=== PATIENT | male | born 1955 | race Caucasian/White ===

== ENCOUNTER → 2017-10-13 10:28 | Outpatient (CLI) | payer MEDICARE ==
[2014-04-28 13:49] VITALS: BMI 20.5
[~2017-10-13 10:28] MED LIST: ALEVE220 MG PO; BAYER ASPIRIN325 MG PO; BAYER CHEWABLE81 MG PO; EFFIENT10 MG PO; FLOMAX0.4 MG PO; HYDROCODONE-APA1 TAB PO; PRAVACHOL40 MG PO; TYLENOL W/CODEI1 TAB PO
== END | disposition home or self-care (01) ==
LOC: D.MRI 10-12 14:30
DX: M54.16 Radiculopathy, lumbar region (principal)

== ENCOUNTER 2017-11-24 08:19 | Outpatient (CLI) | payer MEDICARE ==
[~2017-11-24] VITALS: Ht 292.1 cm; Wt 55.0 kg
--- NOTE | ~2017-11-24 | OP ---
PATIENT NAME: ISAI FONSECA MEDICAL RECORD: [id number] :51 LOCATION:D.CAT ADMISSION DATE: SURGEON: RAVEN JONES MD DATE OF OPERATION: 11/24/2017 PROCEDURE: 1. Aortofemoral runoff. 2. Abdominal aortography. INDICATION: Claudication and peripheral vascular disease. PROCEDURE IN DETAIL: After informed consent was obtained and after a detailed description of risks, benefits as well as alternative therapies, the patient elected to proceed with angiogram. The right femoral area had a preexisting sheath from cardiac intervention. All catheters exchanged through this sheath. FINDINGS: The abdominal aortography was performed. The catheter was pulled down for aortofemoral runoff. Abdominal aortography reveals no significant abdominal aortic disease. No dissection or aneurysm formation. No renal artery stenosis. RIGHT LEG: A. 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 They were placed with an aortofemoral graft. This is widely patent. B. Femoral system: The common and deep femoral are widely patent. Superficial femoral has an 80% stenosis times 2. C. Popliteal and infrapopliteal vessels are widely patent with good 3-vessel runoff to the foot. LEFT LEG: A. Iliac: The iliacs are totally occluded and replaced with an aortofemoral graft. The graft is widely patent; however, there is 80+ percent stenosis just after the graft in the proximal SFA. The remainder of the SFA is devoid of significant disease. B. Popliteal vessels: The popliteal has an 80% and 90% stenosis in the mid vessel, otherwise the popliteal has no significant disease. C. Infrapopliteal vessels are patent. There is 3-vessel runoff to the foot. OVERALL IMPRESSION: Wide patency of the aortofemoral graft with disease after this graft in both SFAs bilaterally. It is amenable to transcatheter revascularization. TRANSINT:[id number] Voice Confirmation ID: [id number] DOCUMENT ID: [id number] RAVEN JONES MD at 1325 CC: [id number] DICTATION DATE: 11/24/17 1501 [employer]INAL [employer]ICE FACULTY: 11/24/17 1538 DEP CLI 11/24/17 [place] [address]
--- NOTE | ~2017-11-24 | OP ---
PATIENT NAME: ISAI FONSECA MEDICAL RECORD: [id number] :51 LOCATION:D.CAT ADMISSION DATE: SURGEON: RAVEN JONES MD DATE OF OPERATION: 11/24/2017 PROCEDURES: 1. PTCA stent LAD. 2. Left heart catheterization. 3. Selective coronary angiography. 4. Left ventriculogram. INDICATION: Angina and coronary artery disease. PROCEDURE IN DETAIL: After informed consent was obtained and after a detailed description of the risks, benefits as well as alternative therapies, the patient elected to proceed with angiogram and angioplasty. The right femoral area was prepped and draped in normal sterile fashion. The right femoral artery was cannulated via modified Seldinger technique with placement of 6-Frisian sheath. All catheters exchanged through this sheath. FINDINGS: The left ventriculogram was performed in standard 30-degree KAN view reveals preserved cardiac wall motion, ejection fraction 50%. SELECTIVE CORONARY ANGIOGRAPHY: 1. Left main is with no significant angiographic disease. 2. Left anterior descending has previously placed stent with 70% to 80% in-stent restenosis in the mid vessel. 3. Left circumflex has moderate irregularities, but no flow-limiting stenosis. 4. The right coronary artery has previously placed stent. This is widely patent with no significant stenosis. PTCA STENT OF THE LAD: The stent used was a 3.5 x 26 mm Waller taken to 21 atmospheres. Result was 0% residual stenosis. OVERALL IMPRESSION: Successful percutaneous transluminal coronary angioplasty stent of the left anterior descending going from 80% initial in-stent restenosis to 0% residual stenosis. TRANSINT:[id number] Voice Confirmation ID: [id number] DOCUMENT ID: [id number] RAVEN JONES MD at 1325 CC: [id number] DICTATION DATE: 11/24/17 1501 CHRISTIAN COUNSELOR: 11/24/17 1538 [facility] CLI 11/24/17 [place] [id number]
--- NOTE | ~2017-11-24 | HEMODYNAMI ---
PATIENT:ISAI FONSECA MEDICAL RECORD: [id number] : 51 LOCATION:D.CAT ADMISSION DATE: 11/24/17 Generatedon:11/24/201715:03 Patient name: ISAI FONSECA Patient #: [id number] SSN: : Date of study: 11/24/2017 Page: Of Hemodynamic Procedure Report Patient Data Patient Demographics Procedure consent was obtained First Name: ISAI Gender: Male Last Name: RAYMUNDO : 1955 Middle Initial: KYA Age: 62 year(s) Patient #: [id number] Race: Unknown Additional ID: [id number] Contact details [address]: [address] [place] [address] State: [place] City: [place] Zip code: [address] Past Medical History Allergies Allergen Reaction Date Comments Reported Other allergy 11/24/2017 PCN, TRAMADOL Admission Admission Data Admission Date: 11/24/2017 Admission Time: 8:19 Lab Results Lab Result Date: 11/24/2017 Lab Result Time: 0:00 Biochemistry Name Units Result Min Max BUN mg/dl 13 --(--*-)-- 7 18 Creatinine mg/dl 1.2 --(---*)-- 0.6 1.3 CBC Name Units Result Min Max Hemoglobin g/dl 15.6 --(--*-)-- 13.5 17.5 Procedure Procedure Types Cath Procedure Diagnostic Procedure LHC [facility] w/Coronaries PCI Procedure Coronary Stent Coronary Stent Initial Peripheral Cath Diagnostic Procedure Cath Peripheral Avmpz-Fqdewde-Ayi-Off Procedure Description Procedure Date Procedure Date: 11/24/2017 Procedure Start Time: 14:40 Procedure End Time: 15:03 Procedure Staff Name Function Vanessa Perea RT Scrub Maxwell Moraes RN Nurse Josh Peterson MD Performing Physician Flavia Cardenas RT Monitor Procedure Data Cath Procedure Fluoroscopy Diagnostic fluoroscopy Total fluoroscopy Time: 2.9 time: 2.9 min min Diagnostic fluoroscopy Total fluoroscopy dose: 314 dose: 314 mGy mGy Contrast Material Contrast Material Type Amount (ml) Isovue 300 106 Entry Location Entry Primary Successful Side Size Upsize Upsize Entry Closure Succes sful Closure Location (Fr) 1 (Fr) 2 (Fr) Remarks Device Remarks Femoral Right 5 Fr 6 Fr Exoseal artery Short Estimated blood loss: 10 ml Diagnostic catheters Device Type Used For End Catheter Placement MULTIPACK Pigtail 5 Fr Procedure catheter MULTIPACK JL 4.0 5Fr Procedure catheter MULTIPACK 3DRC 5Fr Procedure catheter Procedure Complications No complications Procedure Medications Medication Administration Route Dosage Oxygen NC 2 l/min Lidocaine 2% added to field 20 Heparin Flush Bag added to field 2 bags (1000units/500ml NS) 0.9% NaCl I.V. 100 ml/hr Versed I.V. 1 mg Fentanyl I.V. 50 mcg Versed I.V. 1 mg Fentanyl I.V. 50 mcg Versed I.V. 1 mg Fentanyl I.V. 50 mcg Heparin Bolus I.V. 4000 units Integrilin (Bolus I.V. 5 ml 2mg/ml) Effient P.O. 50 mg Hemodynamics Rest HGB: 15.6 (g/dl) Heart Rate: 65 (bpm) Snapshots Pre Cath Intra NCS Post Cath Vital Signs Time Heart Resp SPO2 NIBP Rhythm Pain Sedation Rate (ipm) (%) (mmHg) Status Level (bpm) 14:32:37 75 17 99 99/65(81) NSR 0 (11) 10(A) , No pain 14:36:36 63 16 99 112/66(81) NSR 0 (11) 10(A) , No pain 14:40:44 64 17 98 96/60(76) NSR 0 (11) 10(A) , No pain 14:44:44 72 13 96 101/65(70) NSR 0 (11) 9(A) , No pain 14:48:48 70 12 97 92/59(67) NSR 0 (11) 9(A) , No pain 14:52:47 76 11 96 97/64(79) NSR 0 (11) 9(A) , No pain 14:56:51 75 15 98 97/57(80) NSR 0 (11) 10(A) , No pain 15:00:55 69 9 98 88/59(71) NSR 0 (11) 10(A) , No pain Medications Time Medication Route Dose Verified Delivered Reason Notes Effectiveness by by 14:31:03 Oxygen NC 2 Josh Melaraie used for l/min Kristen Moraes RN procedure 14:31:10 Lidocaine 2% added 20ml Joshgabe Moreno for local to vial Kristen Peterson MD anesthetic field 14:31:16 Heparin Flush added 2 Josh Josh used for Bag to bags Kristen Peterson MD procedure (1000units/500ml field NS) 14:31:23 0.9% NaCl I.V. 100 Josh Melaraie Per physician ml/hr Kristen Moraes RN 14:37:22 Versed I.V. 1 mg Josh Arreola for sedation Kristen Moraes RN 14:37:28 Fentanyl I.V. 50 Josh Melaraie for sedation mcg Kristen Moraes RN 14:39:48 Versed I.V. 1 mg Josh Melaraie for sedation Kristen Moraes RN 14:39:52 Fentanyl I.V. 50 Josh Melaraie for sedation mcg Kristen Moraes RN 14:45:24 Versed I.V. 1 mg Josh Arreola for sedation Kristen Moraes RN 14:45:28 Fentanyl I.V. 50 Josh Melaraie for sedation mcg Kristen Moraes RN 14:50:47 Heparin Bolus I.V. 4000 Josh Arreola for verifi ed units Kristen Moraes RN anticoagulation with dr peterson 14:52:16 Integrilin I.V. 5 ml Josh Melaraie for Wasted 5 (Bolus 2mg/ml) Kristen Moraes RN antiplatelet ml of therapy vial 14:57:27 Effient P.O. 50 mg Josh Arreola for Pt was Kristen Moraes RN antiplatelet just therapy placed on effient and has only taken one 10 mg tab this morning. 50 mg given to make loading dose of 60 mg Procedure Log Time Note 14:17:45 Maxwell Moraes RN sent for patient. Start room use. 14:17:46 Time tracking: Regular hours (M-F 7:00 - 5:00) 14:17:51 Plan of Care:Hemodynamics will remain stable., Cardiac rhythm will remain stable., Comfort level will be maintained., Respiratory function will remain adequate., Patient/ family verbilizes understanding of procedure., Procedure tolerated without complication., Recovers from procedure without complications.. 14:20:46 H&P Date Dictated: 11/22/2017 Within 30 days and on chart., H&P Addendum completed by physician on day of procedure. (MUST COMPLETE FOR ALL OUTPATIENTS). 14:23:08 Lab Result : BUN 13 mg/dl 14:23:08 Lab Result : Creatinine 1.2 mg/dl 14:23:08 Lab Result : Hemoglobin 15.6 g/dl 14:23:26 Patient allergic to Other allergyPCN, TRAMADOL 14:23:46 Patient received from Pre/Post Procedure Room to CCL 2 Alert and oriented. Tansferred to table in Supine position. 14:23:47 Warm blankets applied, and jackson hugger turned on for patient comfort. 14:23:47 Correct patient and procedure confirmed by team. 14:23:48 Signed procedure consent form obtained from patient. 14:23:49 ECG and BP/O2 sat monitors applied to patient. 14:31:03 Oxygen 2 l/min NC was administered by Maxwell Moraes RN; used for procedure; 14:31:10 Lidocaine 2% 20ml vial added to field was administered by Josh Peterson MD; for local anesthetic; 14:31:16 Heparin Flush Bag (1000units/500ml NS) 2 bags added to field was administered by Josh Peterson MD; used for procedure; 14:31:23 0.9% NaCl 100 ml/hr I.V. was administered by Maxwell Moraes RN; Per physician; 14:31:25 Vital chart was started 14:35:39 Baseline sample Acquired. 14:35:47 Rhythm: sinus rhythm 14:35:48 Full Disclosure recording started 14:35:49 Pre-procedure instructions explained to patient. 14:35:49 Pre-op teaching completed and patient verbalized understanding. 14:35:54 Family in patients room. 14:35:56 Patient NPO since Midnight. 14:35:58 Is the patient allergic to Iodine/contrast media? No. 14:36:01 Is patient on blood thinner?Yes 14:36:10 EFFIENT 10MG DOSE TODAY 14:36:13 Patient diabetic? No. 14:36:17 Previous problem with sedation/anesthesia? No ? 14:36:18 Snore? Yes 14:36:20 Sleep apnea? No 14:36:21 Deviated septum? No 14:36:22 Opens mouth fully? Yes 14:36:22 Sticks out tongue? Yes 14:36:25 Airway obstruction? Yes COPD 14:36:29 Dentures? Yes OUT 14:36:38 Pre procedure: right dorsailis pedis pulse 1+ Palpable, but thready & weak; easily obliterated 14:36:41 Pre procedure: left dorsailis pedis pulse 1+ Palpable, but thready & weak; easily obliterated 14:36:44 Patient pain scale 0/10 ?. 14:36:57 IV patent on arrival in left hand with 0.9% NaCl at O. 14:36:59 Lab results completed and on chart. 14:37:02 Bilateral groins area was prepped with chlora-prep and draped in sterile fashion 14:37:03 Alarms reviewed by R. N. 14:37:04 Sharps counted by scrub and verified by R.N. 14:37:06 --------ALL STOP TIME OUT------ 14:37:06 Final Timeout: patient, procedure, and site verified with staff and physician. All members of the team are in agreement. 14:37:08 Bilateral groins site verified by team. 14:37:11 Physical assessment completed. ASA score P 2 - A patient with mild systemic disease as per Josh Peterson MD. 14:37:13 Sedation plan: IV Moderate Sedation Medication:Versed, Fentanyl 14:37:17 Use device set Femoral Dx 14:37:18 ACIST Syringe (97424) opened to sterile field. 14:37:19 Bag Decanter () opened to sterile field. 14:37:22 Versed 1 mg I.V. was administered by Maxwell Moraes RN; for sedation; 14:37:23 ACIST Hand Control (51951) opened to sterile field. 14:37:23 ACIST Manifold (50368) opened to sterile field. 14:37:24 Tegaderm 4 x 4 (1626W) opened to sterile field. 14:37:25 Medline Cath Pack ([id number]) opened to sterile field. 14:37:27 DIAGNOSTIC WIRE .035 260cm J wire (885015) opened to sterile field. 14:37:28 Fentanyl 50 mcg I.V. was administered by Maxwell Moraes RN; for sedation; 14:37:31 DIAGNOSTIC Multipack 5Fr catheter set (XN8015) opened to sterile field. 14:37:33 SHEATH Prelude 5Fr 0.035 (HXV-4Z-41-035) opened to sterile field. 14:39:48 Versed 1 mg I.V. was administered by Maxwell Moraes RN; for sedation; 14:39:52 Fentanyl 50 mcg I.V. was administered by Maxwell Moraes RN; for sedation; 14:40:22 Zero performed for pressure channel P1 14:40:34 Procedure started. 14:40:59 Local anesthetic to right femoral artery with Lidocaine 2% by Josh Peterson MD.INITIAL ACCESS ONLY 14:41:48 Zero performed for pressure channel P1 14:42:39 MAGIC TORQUE 180cm 0.035 wire ([id number]) opened to sterile field. 14:43:57 MAGIC TORQUE USED TO ADVANCED SHEATH 14:44:02 A 5 Fr sheath was inserted into the Right Femoral artery 14:44:13 A MULTIPACK Pigtail 5 Fr catheter was advanced over the wire and used for Procedure. 14:44:30 Procedure type changed to Cath procedure, Diagnostic procedure, LHC, LHC w/Coronaries, PCI procedure, Coronary Stent, Coronary Stent Initial, Peripheral Cath Diagnostic Procedure, Cath Peripheral, Ojlaj-Ogvcvws-Jxq-Off 14:44:33 LV gram done using KAN 14:44:35 Injector settings: Ml/sec: 10, Volume: 20, 14:44:53 EF : 50 % 14:45:11 PIGTAIL MOVED DOWN TO PERFORM AFRO 14:45:24 Versed 1 mg I.V. was administered by Maxwell Moraes RN; for sedation; 14:45:28 Fentanyl 50 mcg I.V. was administered by Maxwell Moraes RN; for sedation; 14:45:36 Abdominal angiogram w/ runoff was performed. 14:45:39 Left leg runoff performed. 14:46:00 Right leg runoff performed. 14:46:30 Catheter removed. 14:46:34 A MULTIPACK JL 4.0 5Fr catheter was advanced over the wire and used for Procedure. 14:47:32 LCA angiography performed. 14:47:56 Catheter removed. 14:48:00 A MULTIPACK 3DRC 5Fr catheter was advanced over the wire and used for Procedure. 14:48:42 RCA angiography performed. 14:49:02 Catheter removed. 14:49:04 INFLATOR Merit BasixCompak (JO8128) opened to sterile field. 14:49:04 SHEATH 6FR Dexter (TMR695) opened to sterile field. 14:49:05 CHOICE PT Extra Support 182cm wire ([id number]) opened to sterile field. 14:49:40 Sheath upsized to a 6 Fr Short. 14:50:13 GUIDE 6FR XBLAD 3.5 catheter ([id number]) opened to sterile field. 14:50:24 6 Fr XBLAD 3.5 guide catheter was inserted over the wire 14:50:47 Heparin Bolus 4000 units I.V. was administered by Maxwell Moraes RN; for anticoagulation; verified with dr peterson 14:51:04 CHOICE ES 182 wire advanced. 14:51:06 Wire advanced across lesion. 14:52:16 Integrilin (Bolus 2mg/ml) 5 ml I.V. was administered by Maxwell Moraes RN; for antiplatelet therapy; Wasted 5 ml of vial 14:52:18 Place stent Inflation Number: 1 A RALEIGH RX 3.5 x 26 stent ([id number]) was prepped and advanced across the Mid LAD. The stent was deployed at 21 RENETTA for 0:10 (min:sec). 14:52:44 Stent catheter was removed intact over wire. 14:52:45 Wire removed. 14:52:47 Guide catheter removed. 14:52:58 EXOSEAL 6Fr (EX600) opened to sterile field. 14:53:06 Sheath removed intact; hemostasis achieved with Exoseal to the Right Femoral artery. 14:53:26 Procedure ended.(Physican Out) 14:53:39 Fluoroscopy time 02.90 minutes. 14:53:44 Fluoroscopy dose: 314 mGy 14:53:44 Flurop Dose total: 314 14:53:47 Contrast amount:Isovue 300 106ml. 14:53:48 Sharps counted by scrub and verified by R.N. 14:57:27 Effient 50 mg P.O. was administered by Maxwell Moraes RN; for antiplatelet therapy; Pt was just placed on effient and has only taken one 10 mg tab this morning. 50 mg given to make loading dose of 60 mg 15:01:12 Post-procedure physical assessment completed. ASA score P 2 - A patient with mild systemic disease as per Josh Peterson MD. 15:01:18 FEMSTOP Gold ([id number]) opened to sterile field. 15:01:23 Femstop placed over the right femoral artery at 130 mmHg. Hemostasis achieved. 15::28 Post procedure rhythm: sinus rhythm 15::29 Estimated blood loss: 10 ml 15::58 Post procedure instruction explained to patient.Patient verbalizes understanding. 15::58 Patient needs reinforcement of post procedure teaching. 15:03:16 Procedure and supply charges have been captured, reviewed, submitted and are correct. 15:03:18 Procedure Complication : No complications 15::20 Vital chart was stopped 15::20 See physician's report for complete and final results. 15::21 Report given to Pre/Post Procedure Room. 15::23 Patient transfered to Pre/Post Procedure Room with Bed. 15::26 Procedure ended. 15:: Full Disclosure recording stopped ::28 End room use (Document Last) Intervention Summary Intervention Notes Time ActionType Lesion and Equipment Used Action# Pressure Duration Attributes 14:52:18 Place stent Mid LAD RALEIGH RX 3.5 x 1 21 00:10 26 stent ([id number]) Device Usage Item Name Manufacture Quantity Catalog Number Hospital Part Current Minimal Lot# / Charge Number Stock Stock Serial# Code ACIST Syringe Acist 1 01937 159335 445197 291100 20 (05794) [employer] Inc Bag Decanter Microtek 1 2001S 903816 96704 609560 5 (2001S) Medical Inc. ACIST Hand Acist 1 16541 576612 745475 360553 5 Control (36207) Medical Systems Inc ACIST Manifold Acist 1 89214 548550 217338 978300 5 (57014) Medical Systems Inc Tegaderm 4 x 4 3M 1 1626W 173992 552167 011190 5 (1626W) Medline Cath Cardinal 1 [id number] 800613 82441 832075 5 Pack Health ([id number]) DIAGNOSTIC WIRE St [place] 1 170078 822349 323783 998918 30 .035 260cm J wire (454991) DIAGNOSTIC Cardinal 1 EO1164 581653 99204 019050 30 Multipack 5Fr Health catheter set (VP5646) SHEATH Prelude Merit 1 XKG-7R-46-035 429702 992057 582499 5 5Fr 0.035 Medical (QHE-1W-20-035) MAGIC TORQUE Wallis 1 [id number] 716181 176877 762801 1 180cm 0.035 Scientific wire ([id number]) MULTIPACK Cardinal 1 698210 5 Pigtail 5 Fr Health catheter MULTIPACK JL Cardinal 1 916468 5 4.0 5Fr Health catheter MULTIPACK 3DRC Cardinal 1 016109 5 5Fr catheter Health INFLATOR Merit Merit 1 VX2970 622409 083375 424668 15 [facility] HospitalWindfall Systems Medical (PX2404) SHEATH 6FR Terumo 1 SQM933 474857 984728 680627 40 Dexter (JED992) CHOICE PT Extra Wallis 1 [id number] 506916 814015 446279 5 Support 182cm Scientific wire ([id number]) GUIDE 6FR XBLAD Cardinal 1 [id number] 231368 573779 162877 10 3.5 catheter Health (90902336) RALEIGH RX 3.5 x Medtronic 1 [id number] 300579 7744643 828127 5 [id number] 26 stent ([id number]) EXOSEAL 6Fr Cardinal 1 EX600 529933 250135 437125 10 (EX600) Health FEMSTOP Gold St [place] 1 X50005 912936 440469 803154 5 ([id number]) Signature Audit Aladdin Stage Time Signature Unsigned Intra-Procedure 11/24/2017 Flavia Cardenas 3:03:43 PM RT(R) Signatures Monitor : Flavia Cardenas Signature : RT Date : Time : [facility] [address] [facility] [place] [address]
[~2017-11-24 08:19] MED LIST changes: -ALEVE220 MG PO; -BAYER CHEWABLE81 MG PO; -EFFIENT10 MG PO; -FLOMAX0.4 MG PO; -PRAVACHOL40 MG PO
[2017-11-24] MEDS ORDERED: FLOMAX0.4 MG PO (08:35)
[2017-11-24] MEDS ORDERED: EFFIENT10 MG PO (08:35)
[2017-11-24] MEDS ORDERED: PRAVACHOL40 MG PO (08:35)
[2017-11-24] MEDS ORDERED: ALEVE220 MG PO (08:36)
[2017-11-24 09:02] VITALS: BP 118/68; Ht 292.1 cm; Wt 55.0 kg
[2017-11-24 09:29] LABS: BASOPHILS 0.2 % (0-2); EOSINOPHILS 2.4 % (0-7); HEMOGLOBIN 15.6 g/dL (13.5-17.5); IMMATURE GRANULOCYTES 0.3 % (0-5); LYMPHOCYTES 21.8 % (15-50); MCHC 34.7 g/dL (31.0-37.0); MCV 89.5 fL (80.0-100.0); MEAN PLATELET VOLUME 10.1 fL (7.4-10.4); MONOCYTES 7.2 % (2-11); NEUTROPHILS 68.1 % (40-80); PLATELET COUNT 272 10x3/uL (130-400); RBC 5.03 10x6/uL (4.20-6.10); RDW 13.8 % (11.5-14.5); WBC 11.1 10x3/uL (4.8-10.8)
[2017-11-24 09:41] LABS: ANION GAP 12.3 mmol/L (8-16); CALCIUM 9.2 mg/dL (8.5-10.1); CARBON DIOXIDE 29.8 mmol/L (21.0-32.0); CREATININE - SERUM 1.2 mg/dL (0.6-1.3); POTASSIUM - SERUM 4.1 mmol/L (3.5-5.1)
== END 2017-11-24 19:00 | disposition home or self-care (01) ==
LOC: D.CATH 08:19
PROVIDERS: Internal Medicine Interventional Cardiology
DX: I25.119 Atherosclerotic heart disease of native coronary artery with unspecified angina pectoris (principal); Z95.5 Presence of coronary angioplasty implant and graft; T82.855A Stenosis of coronary artery stent, initial encounter; Y83.8 Other surgical procedures as the cause of abnormal reaction of the patient, or of later complication, without mention of misadventure at the time of the procedure; I73.9 Peripheral vascular disease, unspecified
CPT/HCPCS: 93458; C9600

== ENCOUNTER → 2017-12-01 08:21 | Outpatient (CLI) | payer MEDICARE ==
[~2017-12-01] VITALS: Ht 292.1 cm; Wt 55.0 kg
--- NOTE | ~2017-12-01 | OP ---
PATIENT NAME: ISAI FONSECA MEDICAL RECORD: [id number] :51 LOCATION:D.CAT ADMISSION DATE: SURGEON: RAVEN JONES MD DATE OF OPERATION: 12/01/2017 PROCEDURES: 1. Stent placement SFA, right. 2. AIRLINE STATION AGENT SFA, right. 3. Unilateral extremity angiography. INDICATION: Claudication and peripheral vascular disease. PROCEDURE IN DETAIL: After informed consent was obtained and after a detailed description of the risks, benefits as well as alternative therapies, the patient elected to proceed with angiogram and angioplasty. The left femoral area was prepped and draped in normal sterile fashion. Left femoral artery was cannulated via modified Seldinger technique with placement of 6-Lebanese sheath. All catheters exchanged through this sheath. FINDINGS: The right SFA has 80% to 85% stenosis throughout the mid distal vessel. This was addressed with a 6.0 balloon yielding suboptimal result with severe intimal dissection. Stenting was undertaken with a 6 x 80 SMART stent. Result was 0% residual stenosis. OVERALL IMPRESSION: Successful AIRLINE STATION AGENT stent of the right SFA going from 80+ percent initial stenosis to 0% residual. TRANSINT:[id number] Voice Confirmation ID: [id number] DOCUMENT ID: [id number] RAVEN JONES MD at 1816 CC: [id number] DICTATION DATE: 12/01/17 1322 RESERVATION MANAGER: 12/01/17 1416 [facility] [address] [place] [address]
--- NOTE | ~2017-12-01 | HP ---
PATIENT: ISAI MENSAH MEDICAL RECORD: [id number] ACCOUNT: [id number] LOCATION:[place] : 51 ADMISSION DATE: 12/01/17 HISTORY AND PHYSICAL EXAMINATION DIAGNOSES: 1. Claudication. 2. Peripheral vascular disease. 3. Coronary artery disease. 4. Hypertension. 5. Hyperlipidemia. HISTORY OF PRESENT ILLNESS: Mr. Mensah presents with claudication symptomatology. Aortofemoral runoff was performed last week. He has significant disease of the SFAs bilaterally, now brought for transcatheter revascularization. PHYSICAL EXAMINATION: GENERAL APPEARANCE: Well-nourished, well-developed, appears stated age. Level of distress, comfortable. PSYCHIATRIC: Mental status, alert, normal affect. Orientation, oriented to time, place and person. EYES: Lids and conjunctiva, noninjected. No discharge, no pallor. ENT: Lips, teeth, gums, normal dentition. Oropharynx, no cyanosis, no pallor. NECK: Carotid arteries, bilateral normal upstroke, no bruits, no thrills. JUGULAR VEINS: No jugular venous pressure or distention. CERVICAL LYMPH NODES: Nontender, nonenlarged. THYROID: Not enlarged. Nontender. No nodules. LUNGS: Respiratory effort, unlabored. CHEST: Normal curvature. No thoracic deformity. No chest wall tenderness. Percussion, resonant. Auscultation, clear. No wheezes, no rales, no rhonchi. CARDIOVASCULAR: Precordial exam, nondisplaced. No heaves or pericardial thrills. Rate and rhythm, regular. Heart sounds, normal S1, normal S2. No S3, no gallop, no rub. Systolic murmur, not heard. Diastolic murmur, not heard. EXTREMITIES: No cyanosis, no edema. Peripheral pulses, full and equal in all extremities, except as noted. No bruits appreciated. ABDOMEN: Soft, nondistended. Normal aorta. No bruit. Nontender. No masses. Liver, nontender, no hepatomegaly. Spleen, nontender, no splenomegaly. MUSCULOSKELETAL: No joint tenderness. No joint swelling. No erythema. NEUROLOGICAL: Normal gait, normal strength, normal tone. SKIN: Warm and dry. REVIEW OF SYSTEMS: The patient reports easy bruising but reports no swollen glands. The patient reports no fever, no night sweats, no significant weight gain, no significant weight loss. No significant exercise tolerance. The patient reports no dry eyes, no irritation, no vision change. Patient reports no difficulty hearing and no ear pain. Patient reports no frequent nose bleeds or nose and sinus problems. Patient reports on arm pain on exertion. No shortness of breath while lying down. No history of heart murmur. Patient reports no cough, no wheezing or coughing up blood. Patient reports no abdominal pain, no vomiting. Normal appetite. No diarrhea and not vomiting blood. No nausea and no constipation. Patient reports no incontinence. No difficulty urinating. No hematuria. No increased frequency. Patient reports no muscle aches. No weakness, no arthralgias, no back pain. No swelling of the extremities. Patient reports no abnormal mole, no jaundice, no rashes. Reports HISTORY AND PHYSICAL [id number] ISAI MENSAH no loss of consciousness. No weakness and no numbness. No seizures, dizziness, or headaches. The patient reports no depression, no sleep disturbance, feeling safe in a relationship and no alcohol abuse. Patient reports on fatigue. Reports no runny nose or sinus pressure. No itching, no hives, and no frequent sneezing. OVERALL IMPRESSION: Claudication symptomatology. We will proceed with attempted transcatheter revascularization of his legs. TRANSINT:[id number] Voice Confirmation ID: [id number] DOCUMENT ID: [id number] RAVEN JONES MD at 1816 CC: [id number] DICTATION DATE: 12/01/17 1245 NETBACKUP ADMINISTRATOR: 12/01/17 1252 [address] [facility] [address] [id number]
--- NOTE | ~2017-12-01 | HEMODYNAMI ---
PATIENT:ISAI FONSECA MEDICAL RECORD: [id number] : 51 LOCATION:D.CAT ADMISSION DATE: 12/01/17 Generatedon:12/01/201713:26 Patient name: ISAI FONSECA Patient #: [id number] SSN: : Date of study: 12/01/2017 Page: Of Hemodynamic Procedure Report Patient Data Patient Demographics Procedure consent was obtained First Name: ISAI Gender: Male Last Name: RAYMUNDO : 1955 Middle Initial: KYA Age: 62 year(s) Patient #: [id number] Race: Unknown Additional ID: [id number] Contact details [address]: [address] [place] [address] State: [place] City: [place] Zip code: [address] Past Medical History Allergies Allergen Reaction Date Comments Reported Other allergy 11/24/2017 PCN, TRAMADOL Admission Admission Data Admission Date: 12/01/2017 Admission Time: 8:21 Procedure Procedure Types Cath Procedure Diagnostic Procedure Sedation Charges Moderate Sedation up to 15 minutes Peripheral vascular Intervention Stent Stent-Fem/Popw/plasty Procedure Description Procedure Date Procedure Date: 12/01/2017 Procedure Start Time: 12:53 Procedure End Time: 13:23 Procedure Staff Name Function Josh Peterson MD Performing Physician India Jones RT Monitor Maxwell Moraes RN Nurse Flavia Cardenas RT Scrub Procedure Data Cath Procedure Fluoroscopy Diagnostic fluoroscopy Total fluoroscopy Time: 9.2 time: 9.2 min min Diagnostic fluoroscopy Total fluoroscopy dose: 145 dose: 145 mGy mGy Contrast Material Contrast Material Type Amount (ml) Isovue 300 73 Entry Location Entry Primary Successful Side Size Upsize Upsize Entry Closure Succes sful Closure Location (Fr) 1 (Fr) 2 (Fr) Remarks Device Remarks Femoral Left 6 Fr 6 Fr Exoseal artery Short Long Estimated blood loss: 10 ml Diagnostic catheters Device Type Used For End Catheter Placement DIAGNOSTIC IMT 5Fr Procedure Catheter ([id number]) DIAGNOSTIC UF 5Fr Procedure catheter ([id number]) DIAGNOSTIC MPA-2 5Fr Procedure catheter ([id number]) Procedure Complications No complications Procedure Medications Medication Administration Route Dosage Oxygen etCO2 Nasal cannula 2 l/min Lidocaine 2% added to field 20 Heparin Flush Bag added to field 2 bags (1000units/500ml NS) 0.9% NaCl I.V. 100 ml/hr Versed I.V. 2 mg Fentanyl I.V. 100 mcg Heparin Bolus I.V. 4000 units Versed I.V. 1 mg Fentanyl I.V. 50 mcg Versed I.V. 1 mg Fentanyl I.V. 50 mcg Hemodynamics Rest Pre Cath Intra NCS Post Cath Vital Signs Time Heart Resp SPO2 etCO2 NIBP (mmHg) Rhythm Pain Sedation Rate (ipm) (%) (mmHg) Status Level (bpm) 12:42:05 64 19 99 26.3 126/76(106) NSR 0 (11) 10(A) , No pain 12:46:15 59 20 100 20 128/74(108) NSR 0 (11) 10(A) , No pain 12:50:29 60 21 98 0.7 118/62(97) NSR 0 (11) 10(A) , No pain 12:54:35 67 18 100 0 129/74(102) NSR 0 (11) 10(A) , No pain 12:58:47 68 12 96 30 136/66(109) NSR 0 (11) 9(A) , No pain 13:03:01 64 15 100 0 113/69(93) NSR 0 (11) 9(A) , No pain 13:07:07 67 15 100 20.3 129/67(100) NSR 0 (11) 9(A) , No pain 13:11:18 63 16 100 13.5 114/59(99) NSR 0 (11) 9(A) , No pain 13:15:24 64 16 100 12 108/64(93) NSR 0 (11) 9(A) , No pain 13:19:28 61 15 100 15 108/64(94) NSR 0 (11) 10(A) , No pain 13:23:32 65 18 100 16.5 109/67(87) NSR 0 (11) 10(A) , No pain Medications Time Medication Route Dose Verified Delivered Reason Notes Effectiveness by by 12:40:59 Oxygen etCO2 2 Josh Arreola used for Nasal l/min Kristen Moraes RN procedure cannula 12:41:06 Lidocaine 2% added 20ml Josh Buffie for local to vial Kristen Moraes RN anesthetic field 12:41:13 Heparin Flush added 2 Josh Buffie used for Bag to bags Kristen Moraes RN procedure (1000units/500ml field NS) 12:41:20 0.9% NaCl I.V. 100 Josh Buffie Per physician ml/hr Kristen Moraes RN 12:53:51 Versed I.V. 2 mg Josh Buffie for sedation Kristen Moraes RN 12:53:58 Fentanyl I.V. 100 Josh Buffie for sedation mcg Kristen Moraes RN 13:00:21 Versed I.V. 1 mg Josh Buffie for sedation Kristen Moraes RN 13:00:26 Fentanyl I.V. 50 Josh Buffie for sedation mcg Kristen Moraes RN 13:07:13 Heparin Bolus I.V. 4000 Josh Buffie for verif ied units Kristen Moraes RN anticoagulation with dr peterson 13:12:45 Versed I.V. 1 mg Josh Buffie for sedation Kristen Moraes RN 13:12:50 Fentanyl I.V. 50 Josh Buffie for sedation mcg Kristen Moraes RN Procedure Log Time Note 12:31:35 Diagnostic Cath status Elective 12:31:39 Maxwell Moraes RN sent for patient. Start room use. 12:31:40 Time tracking: Regular hours (M-F 7:00 - 5:00) 12:31:46 Plan of Care:Hemodynamics will remain stable., Cardiac rhythm will remain stable., Comfort level will be maintained., Respiratory function will remain adequate., Patient/ family verbilizes understanding of procedure., Procedure tolerated without complication., Recovers from procedure without complications.. 12:31:52 Patient received from Pre/Post Procedure Room to CCL 2 Alert and oriented. Tansferred to table in Supine position. 12:32:25 Patient arrived from Pre/Post Procedure Room to CCL 2. Patient remains on bed/stretcher for procedure. 12:32:27 Warm blankets applied, and jackson hugger turned on for patient comfort. 12:32:27 Correct patient and procedure confirmed by team. 12:32:29 Signed procedure consent form obtained from patient. 12:32:31 ECG and BP/O2 sat monitors applied to patient. 12:32:36 H&P Date Dictated: 12/01/2017 Within 30 days and on chart., H&P Addendum completed by physician on day of procedure. (MUST COMPLETE FOR ALL OUTPATIENTS). 12:32:37 Pre-procedure instructions explained to patient. 12:32:39 Family in waiting room. 12:32:41 Patient NPO since Midnight. 12:40:52 Vital chart was started 12:40:59 Oxygen 2 l/min etCO2 Nasal cannula was administered by Maxwell Moraes RN; used for procedure; 12:41:06 Lidocaine 2% 20ml vial added to field was administered by Maxwell Moraes RN; for local anesthetic; 12:41:13 Heparin Flush Bag (1000units/500ml NS) 2 bags added to field was administered by Maxwell Moraes RN; used for procedure; 12:41:20 0.9% NaCl 100 ml/hr I.V. was administered by Maxwell Moraes RN; Per physician; 12:45:43 Use device set IR Diagnostic 12:45:57 Use device set Femoral Dx 12:47:07 GLIDE WIRE Super Stiff Angled 260cm ([id number]) opened to sterile field. 12:47:08 ACIST Syringe (07613) opened to sterile field. 12:47:08 ACIST Hand Control (25241) opened to sterile field. 12:47:09 ACIST Manifold (48313) opened to sterile field. 12:47:09 Bag Decanter (2002S) opened to sterile field. 12:47:11 Sterile Angiographic Pack opened to sterile field. 12:47:11 Tegaderm 4 x 4 (1626W) opened to sterile field. 12:47:19 DIAGNOSTIC WIRE .035 260cm J wire (695185) opened to sterile field. 12:47:27 PERCUTANEOUS ENTRY 19GA needle opened to sterile field. 12:47:45 SHEATH 6Fr Prelude ([id number]) opened to sterile field. 12:51:05 Full Disclosure recording started 12:51:42 Is patient on blood thinner?Yes 12:51:46 ACC The patient was administered the following blood thiners within the last 24 hours: ACCEffient 12:51:48 Patient diabetic? No. 12:51:54 Snore? Yes 12:51:57 Sleep apnea? No 12:52:02 Airway obstruction? Yes COPD 12:52:07 Dentures? No ? 12:52:17 IV patent on arrival in left forearm with 0.9% NaCl at [facility]. 12:52:21 Lab results completed and on chart. 12:52:26 Bilateral groins area was prepped with chlora-prep and draped in sterile fashion 12:52:28 Sharps counted by scrub and verified by R.N. 12:52:30 Physician arrived 12::30 --------ALL STOP TIME OUT------ 12:52:31 Final Timeout: patient, procedure, and site verified with staff and physician. All members of the team are in agreement. 12:52:49 Sedation plan: IV Moderate Sedation Medication:Versed, Fentanyl 12:53:23 Local anesthetic to left femerol artery with Lidocaine 2% by Josh Peterson MD.INITIAL ACCESS ONLY 12:53:27 Arterial access obtained using ultrasound guidance. 12:53:51 Versed 2 mg I.V. was administered by Maxwell Moraes RN; for sedation; 12:53:54 A 6 Fr Short sheath was inserted into the Left Femoral artery 12:53:58 Fentanyl 100 mcg I.V. was administered by Maxwell Moraes RN; for sedation; 12:54:12 A 5 FrFr IM catheter was inserted over the wire. 12:54:50 A DIAGNOSTIC IMT 5Fr Catheter ([id number]) was advanced over the wire and used for Procedure. 12:55:36 Right leg runoff performed. 12:56:44 SHEATH 6FR Destination (RSR01) opened to sterile field. 12:57:06 Sheath upsized to a 6 Fr Long. 12:59:08 A DIAGNOSTIC UF 5Fr catheter ([id number]) was advanced over the wire and used for Procedure. 12:59:25 Catheter removed. 12:59:29 Angiography was performed. 13:00:21 Versed 1 mg I.V. was administered by Maxwell Moraes RN; for sedation; 13:00:26 Fentanyl 50 mcg I.V. was administered by Maxwell Moraes RN; for sedation; 13:00:54 A DIAGNOSTIC MPA-2 5Fr catheter ([id number]) was advanced over the wire and used for Procedure. 13:01:39 Catheter removed. 13:05:32 CHOICE PT Extra Support J 300cm guide wire ([id number]) opened to sterile field. 13:05:56 ch pt ex wire advanced. 13:07:13 Heparin Bolus 4000 units I.V. was administered by Maxwell Moraes RN; for anticoagulation; verified with dr peterson 13:11:40 Inflate balloon Inflation number: 1 A SABER 6.0 x 6 x 150 balloon ([id number]) was prepped and advanced across the Mid Superficial Femoral, Right, then inflated to 9 RENETTA for 0:06 (min:sec). 13:12:28 Balloon removed. 13:12:45 Versed 1 mg I.V. was administered by Maxwell Moraes RN; for sedation; 13:12:50 Fentanyl 50 mcg I.V. was administered by Maxwell Moraes RN; for sedation; 13:14:42 SMART 6 X 80 X 120 stent ([id number]) was deployed across Mid Superficial Femoral, Right . 13:14:50 Stent removed. 13:15:01 Balloon advanced to the SFA 13:15:42 Inflation number: 2 The SABER 6.0 x 6 x 150 balloon ([id number]) was reinflated across the Mid Superficial Femoral, Right, to 13 RENETTA for 0:00 (min:sec). 13:15:47 Inflation number: 3 The SABER 6.0 x 6 x 150 balloon ([id number]) was reinflated across the Mid Superficial Femoral, Right, to 9 RENETTA for 0:00 (min:sec). 13:16:54 Balloon removed over the wire. 13:16:56 Wire removed. 13:18:53 Sheath removed intact; hemostasis achieved with Exoseal to the Left Femoral artery. 13:19:05 EXOSEAL 6Fr (EX600) opened to sterile field. 13:19:10 Procedure ended.(Physican Out) 13:19:22 Fluoroscopy time 09.20 minutes. 13:19:28 Fluoroscopy dose: 145 mGy 13:19:28 Flurop Dose total: 145 13:19:33 Contrast amount:Isovue 300 73ml. 13:19:35 Sharps counted by scrub and verified by R.N. 13:19:49 Insertion/operative site no bleeding no hematoma. 13:19:55 Post-op/insertion site Left Femoral artery dressed using a 4 x 4 and Tegaderm. 13:19:57 Post Procedure Pulses reassessed and unchanged 13:20:01 Post-procedure physical assessment completed. ASA score P 2 - A patient with mild systemic disease as per Josh Peterson MD. 13:20:07 Post procedure rhythm: sinus rhythm 13:20:10 Estimated blood loss: 10 ml 13:20:12 Post procedure instruction explained to patient.Patient verbalizes understanding. 13:20:43 Procedure type changed to Cath procedure, Diagnostic procedure, Sedation Charges, Moderate Sedation up to 15 minutes, Peripheral vascular Intervention, Stent, Stent-Fem/Popw/plasty 13:20:48 Procedure and supply charges have been captured, reviewed, submitted and are correct. 13:22:55 Procedure Complication : No complications 13:22:58 Vital chart was stopped 13:22:58 See physician's report for complete and final results. 13:23:00 Report given to Pre/Post Procedure Room. 13:23:03 Patient transfered to Pre/Post Procedure Room with Stretcher. 13:23:06 Procedure ended. 13:23:06 Full Disclosure recording stopped 13:23:11 End room use (Document Last) Intervention Summary Intervention Notes Time ActionType Lesion and Equipment Action# Pressure Duration Attributes Used 13:11:40 Inflate Mid SABER 6.0 x 1 9 00:06 balloon Superficial 6 x 150 Femoral, balloon Right ([id number]) 13:14:42 Deploy self Mid SMART 6 X 1 expanding Superficial 80 X 120 stent Femoral, stent Right ([id number]) 13:15:42 Reinflate Mid SABER 6.0 x 2 13 00:00 balloon Superficial 6 x 150 Femoral, balloon Right ([id number]) 13:15:47 Reinflate Mid SABER 6.0 x 3 9 00:00 balloon Superficial 6 x 150 Femoral, balloon Right ([id number]) Device Usage Item Name Manufacture Quantity Catalog Number Hospital Part Current Mini mal Lot# / Charge Number Stock Stock Serial# Code GLIDE WIRE Terumo 1 [id number] 459127 478020 5 Super Stiff Angled 260cm (OV3712) ACIST Acist 1 94272 630702 391192 335912 20 Syringe Medical (51029) Systems Inc ACIST Hand Acist 1 66330 926045 153180 271654 5 Control Medical (69253) Systems Inc ACIST Acist 1 12947 053941 227335 471270 5 Manifold Medical (05209) Systems Inc Bag Decanter Microtek 1 2001S 813606 17982 144739 5 (2001S) Medical Inc. Sterile Cardinal 1 [id number] 130078 728285 5 Angiographic Health Pack Tegaderm 4 x 3M 1 1626W 658106 585052 458307 5 4 (1626W) DIAGNOSTIC [facility] [place] 1 684019 348174 270313 070337 30 WIRE .035 260cm J wire (359130) PERCUTANEOUS Cook Medical 1 K89666 370815 147349 5 ENTRY 19GA needle SHEATH 6Fr Merit 1 [id number] 215206 508404 334759 5 Prelude Medical ([id number]) DIAGNOSTIC [place] 1 [id number] 841167 641133 38244 5 IMT 5Fr Scientific Catheter ([id number]) SHEATH 6FR Terumo 1 RSR01 684751 05424 675285 5 Destination (RSR01) DIAGNOSTIC Cardinal 1 [id number] 997799 296859 754536 10 UF 5Fr Health catheter ([id number]) DIAGNOSTIC Cardinal 1 298309G 566593 688432 712512 5 MPA-2 5Fr Health catheter (526242G) CHOICE PT [place] 1 [id number] 080538 917046 453739 5 Extra Scientific Support J 300cm guide wire ([id number]) SABER 6.0 x Cardinal 1 [id number] 516665 559988 521267 5 6 x 150 Health balloon ([id number]) SMART 6 X 80 Cardinal 1 [id number] 088142 157922 0 X 120 stent Health ([id number]) EXOSEAL 6Fr Cardinal 1 EX600 779397 648424 471154 10 (EX600) Health Signature Audit [place] Stage Time Signature Unsigned Intra-Procedure 12/01/2017 India Jones 1:26:56 PM RT(R) Signatures Monitor : India Jones Signature : RT Date : Time : [address] [address]
[~2017-12-01 08:21] MED LIST changes: +ALEVE220 MG PO; +BAYER CHEWABLE81 MG PO; +EFFIENT10 MG PO; +FLOMAX0.4 MG PO; +PRAVACHOL40 MG PO
[2017-12-01 08:48] VITALS: BP 122/74; Ht 292.1 cm; Wt 55.0 kg
[2017-12-01 08:59] LABS: BASOPHILS 0.4 % (0-2); EOSINOPHILS 3.1 % (0-7); HEMATOCRIT 46.5 % (42.0-54.0); HEMOGLOBIN 16.2 g/dL (13.5-17.5); IMMATURE GRANULOCYTES 0.2 % (0-5); LYMPHOCYTES 31.6 % (15-50); MCH 31.2 pg (26.0-34.0); MCHC 34.8 g/dL (31.0-37.0); MCV 89.6 fL (80.0-100.0); MEAN PLATELET VOLUME 9.9 fL (7.4-10.4); NEUTROPHILS 54.7 % (40-80); PLATELET COUNT 269 10x3/uL (130-400); RBC 5.19 10x6/uL (4.20-6.10); RDW 13.6 % (11.5-14.5)
[2017-12-01 09:12] LABS: ANION GAP 11.6 mmol/L (8-16); CARBON DIOXIDE 29.3 mmol/L (21.0-32.0); CREATININE - SERUM 1.3 mg/dL (0.6-1.3); POTASSIUM - SERUM 3.9 mmol/L (3.5-5.1)
== END | disposition home or self-care (01) ==
LOC: D.CATH 08:21
PROVIDERS: Internal Medicine Interventional Cardiology
DX: I70.211 Atherosclerosis of native arteries of extremities with intermittent claudication, right leg (principal); I25.10 Atherosclerotic heart disease of native coronary artery without angina pectoris; I10 Essential (primary) hypertension; E78.5 Hyperlipidemia, unspecified; Z01.812 Encounter for preprocedural laboratory examination

== ENCOUNTER 2017-12-11 07:51 | Outpatient (CLI) | payer MEDICARE ==
[~2017-12-11] VITALS: Ht 292.1 cm; Wt 55.0 kg
--- NOTE | ~2017-12-11 | HEMODYNAMI ---
PATIENT:ISAI FONSECA MEDICAL RECORD: [id number] : 51 LOCATION:D.CAT ADMISSION DATE: 12/11/17 Generatedon:12/11/201710:56 Patient name: ISAI FONSECA Patient #: [id number] SSN: : Date of study: 12/11/2017 Page: Of Hemodynamic Procedure Report Patient Data Patient Demographics Procedure consent was obtained First Name: ISAI Gender: Male Last Name: RAYMUNDO : 1955 Middle Initial: KYA Age: 62 year(s) Patient #: [id number] Race: Unknown Additional ID: [id number] Contact details [address]: [address] [place] [address] State: [place] City: [place] Zip code: [address] Past Medical History Allergies Allergen Reaction Date Comments Reported Other allergy 11/24/2017 PCN, TRAMADOL Admission Admission Data Admission Date: 12/11/2017 Admission Time: 7:51 Procedure Procedure Types Cath Procedure Peripheral Cath Diagnostic Procedure Abd/Extremity Extremities Left Lower Ext Arterio Peripheral vascular Intervention Stent Stent-Fem/Popw/plasty Procedure Description Procedure Date Procedure Date: 12/11/2017 Procedure Start Time: 10:27 Procedure End Time: 10:55 Procedure Staff Name Function Josh Peterson MD Performing Physician Roel Siddiqui RT Monitor Bairon Clifton RN Nurse Douglas Austin RT Scrub Procedure Data Cath Procedure Fluoroscopy Diagnostic fluoroscopy Total fluoroscopy Time: 4.9 time: 4.9 min min Diagnostic fluoroscopy Total fluoroscopy dose: 72 dose: 72 mGy mGy Contrast Material Contrast Material Type Amount (ml) Isovue 300 51 Entry Location Entry Primary Successful Side Size Upsize Upsize Entry Closure Succes sful Closure Location (Fr) 1 (Fr) 2 (Fr) Remarks Device Remarks Femoral Right 6 Fr 6 Fr Exoseal artery Long Short Estimated blood loss: 10 ml Diagnostic catheters Device Type Used For End Catheter Placement DIAGNOSTIC IMT 5Fr Procedure Catheter ([id number]) DIAGNOSTIC UF 5Fr Procedure catheter ([id number]) DIAGNOSTIC MPA-2 5Fr Procedure catheter ([id number]) Procedure Medications Medication Administration Route Dosage 0.9% NaCl I.V. 100 ml/hr Oxygen etCO2 Nasal cannula 2 l/min Heparin Flush Bag added to field 2 bags (1000units/500ml NS) Lidocaine 2% added to field 20 Versed I.V. 2 mg Fentanyl I.V. 100 mcg Versed I.V. 1 mg Fentanyl I.V. 50 mcg Heparin Bolus I.V. 5000 units Hemodynamics Rest Heart Rate: 58 (bpm) Snapshots Pre Cath Intra NCS Post Cath Vital Signs Time Heart Resp SPO2 etCO2 NIBP Rhythm Pain Sedation Rate (ipm) (%) (mmHg) (mmHg) Status Level (bpm) 10:05:21 59 17 100 30.9 118/65(89) NSR 0 (11) 10(A) , No pain 10:09:55 58 12 100 15.8 115/68(90) NSR 0 (11) 10(A) , No pain 10:14:30 55 13 100 32.4 113/63(92) NSR 0 (11) 10(A) , No pain 10:19:04 55 15 100 30.9 113/61(91) NSR 0 (11) 10(A) , No pain 10:23:36 60 12 100 36.2 109/62(84) NSR 0 (11) 10(A) , No pain 10:28:09 60 14 100 36.9 98/59(77) NSR 0 (11) 10(A) , No pain 10:32:37 62 15 100 35.4 107/65(77) NSR 0 (11) 10(A) , No pain 10:37:10 66 18 100 14.3 95/65(82) NSR 0 (11) 9(A) , No pain 10:41:40 63 19 100 21.1 107/62(82) NSR 0 (11) 9(A) , No pain 10:46:13 63 18 100 27.1 97/62(76) NSR 0 (11) 9(A) , No pain 10:50:43 61 9 100 38.4 97/59(81) NSR 0 (11) 9(A) , No pain 10:55:13 62 10 100 36.9 102/58(76) NSR 0 (11) 9(A) , No pain Medications Time Medication Route Dose Verified Delivered Reason Notes Effectiveness by by 9:58:59 0.9% NaCl I.V. 100 Bairon Bairon Per physician ml/hr Elodia Clifton RN RN 9:59:16 Oxygen etCO2 2 Bairon Bairon Per physician Nasal l/min Elodia Clifton cannula RN RN 9:59:27 Heparin Flush added 2 Bairon Bairon used for Bag to bags Elodia Clifton procedure (1000units/500ml field RN RN NS) 9:59:41 Lidocaine 2% added 20ml Bairon Bairon for local to vial Lorigan Elodia anesthetic field RN RN 10:27:45 Versed I.V. 2 mg Bairon Bairon for sedation Elodia Clifton RN RN 10:27:54 Fentanyl I.V. 100 Bairon Bairon for sedation mcg Elodia Clifton RN RN 10:33:34 Versed I.V. 1 mg Bairon Bairon for sedation Elodia Clifton RN RN 10:33:45 Fentanyl I.V. 50 Bairon Bairon for sedation mcg Elodia Clifton RN RN 10:41:35 Heparin Bolus I.V. 5000 Bairon Bairon for units Elodia Clifton anticoagulation RN dietist Log Time Note 9:35:30 Bairon Clifton RN sent for patient. Start room use. 9:48:40 Time tracking: Regular hours (M-F 7:00 - 5:00) 9:48:46 Plan of Care:Hemodynamics will remain stable., Cardiac rhythm will remain stable., Comfort level will be maintained., Respiratory function will remain adequate., Patient/ family verbilizes understanding of procedure., Procedure tolerated without complication., Recovers from procedure without complications.. 9:48:57 Patient received from Pre/Post Procedure Room to CCL 1 Alert and oriented. Tansferred to table in Supine position. 9:48:58 Warm blankets applied, and jackson hugger turned on for patient comfort. 9:48:59 Correct patient and procedure confirmed by team. 9:49:00 Signed procedure consent form obtained from patient. 9:49:00 ECG and BP/O2 sat monitors applied to patient. 9:57:27 Vital chart was started 9:57:29 Baseline sample Acquired. 9:57:32 Rhythm: sinus rhythm 9:57:35 Full Disclosure recording started 9:58:59 0.9% NaCl 100 ml/hr I.V. was administered by Bairon Clifton RN; Per physician; 9:59:16 Oxygen 2 l/min etCO2 Nasal cannula was administered by Bairon Clifton RN; Per physician; 9:59:27 Heparin Flush Bag (1000units/500ml NS) 2 bags added to field was administered by Bairon Clifton RN; used for procedure; 9:59:41 Lidocaine 2% 20ml vial added to field was administered by Bairon Clifton RN; for local anesthetic; 10:00:41 H&P Date Dictated: 12/11/2017 New H&P dictated by physician.. 10:00:42 Pre-procedure instructions explained to patient. 10:00:43 Pre-op teaching completed and patient verbalized understanding. 10:00:48 Family in patients room. 10:00:49 Patient NPO since Midnight. 10:00:52 Is the patient allergic to Iodine/contrast media? No. 10:00:54 Is patient on blood thinner?Yes 10:00:56 ACC The patient was administered the following blood thiners within the last 24 hours: ACCEffient 10:00:58 Patient diabetic? No. 10:01:01 Previous problem with sedation/anesthesia? No ? 10:01:02 Snore? Yes 10:01:03 Sleep apnea? No 10:01:04 Deviated septum? No 10:01:05 Opens mouth fully? Yes 10:01:06 Sticks out tongue? Yes 10:01:10 Dentures? No ? 10:01:11 Airway obstruction? No ? 10:01:16 Pre procedure: right dorsailis pedis pulse 1+ Palpable, but thready & weak; easily obliterated 10:01:19 Pre procedure: left dorsailis pedis pulse 1+ Palpable, but thready & weak; easily obliterated 10:01:23 Patient pain scale 0/10 ?. 10:01:27 IV patent on arrival in left forearm with 0.9% NaCl at [facility]. 10:01:29 Lab results completed and on chart. 10:01:34 Right groin area was prepped with chlora-prep and draped in sterile fashion 10:01:35 Alarms reviewed by R. N. 10:01:36 Sharps counted by scrub and verified by R.N. 10:01:44 Use device set Femoral Dx 10:01:47 Use device set TAUTH PCI 10:02:22 ACIST Syringe (12909) opened to sterile field. 10:02:22 Bag Decanter (2002) opened to sterile field. 10:02:24 Medline Cath Pack ([id number]) opened to sterile field. 10:02:35 ACIST Hand Control (25665) opened to sterile field. 10:02:36 ACIST Manifold (29270) opened to sterile field. 10:02:37 Tegaderm 4 x 4 (1626W) opened to sterile field. 10:02:41 DIAGNOSTIC WIRE .035 260cm J wire (855002) opened to sterile field. 10:02:45 INFLATOR Merit BasixCompak (TI8402) opened to sterile field. 10:02:56 SHEATH Prelude 6Fr 0.035 (VSY-8B-51-035) opened to sterile field. 10:02:56 SHEATH 6FR Destination (RSR01) opened to sterile field. 10:03:01 GLIDE WIRE ANGLE 260cm (NK5070) opened to sterile field. 10:26:42 Physician arrived 10:26:43 --------ALL STOP TIME OUT------ 10:26:43 Final Timeout: patient, procedure, and site verified with staff and physician. All members of the team are in agreement. 10:26:47 Right groin site verified by team. 10:26:50 Physical assessment completed. ASA score P 2 - A patient with mild systemic disease as per Josh Peterson MD. 10:26:55 Sedation plan: IV Moderate Sedation Medication:Versed, Fentanyl 10:27:45 Versed 2 mg I.V. was administered by Bairon Clifton RN; for sedation; 10:27:46 Local anesthetic to right femoral artery with Lidocaine 2% by Josh Peterson MD.INITIAL ACCESS ONLY 10:27:54 Fentanyl 100 mcg I.V. was administered by Bairon Clifton RN; for sedation; 10:27:57 A 6 Fr Long sheath was inserted into the Right Femoral artery 10:29:55 A DIAGNOSTIC IMT 5Fr Catheter ([id number]) was advanced over the wire and used for Procedure. 10:30:17 IMT ADVANCED 10:33:11 GLIDE WIRE Super Stiff Angled 260cm (NG9196) opened to sterile field. 10:33:34 Versed 1 mg I.V. was administered by Bairon Clifton RN; for sedation; 10:33:37 GLIDE WIRE ADVANCED AROUND THE HORN 10:33:45 Fentanyl 50 mcg I.V. was administered by Bairon Clifton RN; for sedation; 10:34:45 IMT REMOVED 10:34:52 A DIAGNOSTIC UF 5Fr catheter ([id number]) was advanced over the wire and used for Procedure. 10:35:36 CATHETER AND WIRE ADVANCED AROUND THE HORN 10:35:48 Catheter removed. 10:36:18 A DIAGNOSTIC MPA-2 5Fr catheter ([id number]) was advanced over the wire and used for Procedure. 10:36:56 MP ADVANCED INTO LEFT ILIAC FOR SUPPORT 10:37:58 DESTINATION ADVANCED AROUND THE HORN 10:38:03 Catheter removed. 10:39:17 CHOICE PT Extra Support J 300cm guide wire ([id number]) opened to sterile field. 10:39:46 GLIDE WIRE REMOVED 10:40:17 CHOICE wire advanced. 10:41:35 Heparin Bolus 5000 units I.V. was administered by Bairon Clifton RN; for anticoagulation; 10:42:32 Inflate balloon Inflation number: 1 A POWERFLEX PRO 6.0 x 40 x 135cm balloon ([id number]) was prepped and advanced across the Proximal Femoral, Left, then inflated to 9 RENETTA for 0:10 (min:sec). 10:45:14 SMART 7 X 40 X 120 stent ([id number]) was deployed across Proximal Femoral, Left . 10:45:25 Stent catheter was removed intact over wire. 10:45:27 Wire removed. 10:45:42 EXOSEAL 6Fr (EX600) opened to sterile field. 10:46:21 Sheath upsized to a 6 Fr Short. 10:46:50 Sheath removed intact; hemostasis achieved with Exoseal to the Right Femoral artery. 10:48:12 Procedure ended.(Physican Out) 10:48:21 Fluoroscopy time 04.90 minutes. 10:48:32 Fluoroscopy dose: 72 mGy 10:48:32 Flurop Dose total: 72 10:48:38 Contrast amount:Isovue 300 51ml. 10:48:40 Sharps counted by scrub and verified by R.N. 10:52:14 Procedure type changed to Cath procedure, Peripheral Cath Diagnostic Procedure, Abd/Extremity, Extremities, Left Lower Ext Arterio, Peripheral vascular Intervention, Stent, Stent-Fem/Popw/plasty 10:53:20 Insertion/operative site no bleeding no hematoma. 10:53:24 Post-op/insertion site Right Femoral artery dressed using a 4 x 4 and Tegaderm. 10:53:29 Post right femoral artery:stable 10:53:50 Post-procedure physical assessment completed. ASA score P 2 - A patient with mild systemic disease as per Josh Peterson MD. 10:54:46 Estimated blood loss: 10 ml 10:54:49 Post procedure instruction explained to patient.Patient verbalizes understanding. 10:54:50 Patient needs reinforcement of post procedure teaching. 10:54:51 Procedure and supply charges have been captured, reviewed, submitted and are correct. 10:54:53 Vital chart was stopped 10:54:54 See physician's report for complete and final results. 10:54:59 Report given to Pre/Post Procedure Room. 10:55:05 Patient transfered to Pre/Post Procedure Room with Stretcher. 10:55:23 Procedure ended. 10:55:23 Full Disclosure recording stopped 10:55:27 End room use (Document Last) Intervention Summary Intervention Notes Time ActionType Lesion and Equipment Action# Pressure Duration Attributes Used 10:42:32 Inflate Proximal POWERFLEX 1 9 00:10 balloon Femoral, PRO 6.0 x Left 40 x 135cm balloon ([id number]) 10:45:14 Deploy self Proximal SMART 7 X 1 expanding Femoral, 40 X 120 stent Left stent ([id number]) Device Usage Item Name Manufacture Quantity Catalog Number Hospital Part Current Minimal Lot# / Charge Number Stock Stock Serial# Code ACIST Syringe Acist 1 53172 262769 547196 755212 20 (29032) Medical Systems MobiliBuy Bag Decanter Microtek 1 629844 58579 564979 5 () Medical Inc. Medline Cath Cardinal 1 [id number] 537284 55491 386583 5 Pack Health ([id number]) ACIST Hand Acist 1 32558 321139 133187 079878 5 Control (32061) Medical Systems Inc ACIST Manifold Acist 1 51307 094000 802387 511454 5 (22883) Medical [employer] Tegaderm 4 x 4 3M 1 1626W 799172 309645 241761 5 (1626W) DIAGNOSTIC WIRE St [place] 1 087906 102562 948499 583537 30 .035 260cm J wire (488376) INFLATOR Merit Merit 1 XS9199 409075 531831 732295 15 BasixCompak Medical (SO5786) SHEATH Prelude Merit 1 ORO-4G-77-35 186463 0789253 086545 5 6Fr 0.035 Medical (DPM-6P-06-035) SHEATH 6FR Terumo 1 RSR01 543129 11328 534881 5 Destination (RSR01) GLIDE WIRE Terumo 1 FW8064 053006 615499 743130 5 ANGLE 260cm (OT2844) DIAGNOSTIC IMT Jessup 1 [id number] 063813 458501 49876 5 5Fr Catheter Scientific ([id number]) GLIDE WIRE Terumo 1 PI2995 298973 668690 443811 5 Super Stiff Angled 260cm (VC3457) DIAGNOSTIC UF Cardinal 1 [id number] 974439 165240 848821 10 5Fr catheter Health (258713L3) DIAGNOSTIC Cardinal 1 [id number] 165923 976202 970506 5 MPA-2 5Fr Health catheter (392569I) CHOICE PT Extra Jessup 1 [id number] 056666 20181106 105712 5 Support J 300cm Scientific guide wire ([id number]) POWERFLEX PRO Cardinal 1 [id number] 379968 165763 438896 5 6.0 x 40 x Health 135cm balloon (3779455Y) SMART 7 X 40 X Cardinal 1 [id number] 933462 284090 0 [id number] 120 stent Health ([id number]) EXOSEAL 6Fr Cardinal 1 EX600 595339 777757 569071 10 (EX600) Health Signature Audit [place] Stage Time Signature Unsigned Intra-Procedure 12/11/2017 Roel Siddiqui 10:56:20 AM RT(R) (CV) Signatures Monitor : Roel Siddiqui RT Signature : Date : Time : [facility] [address] [place] [address]
--- NOTE | ~2017-12-11 | OP ---
PATIENT NAME: ISAI FONSECA MEDICAL RECORD: [id number] :51 LOCATION:D.CAT ADMISSION DATE: SURGEON: RAVEN JONES MD DATE OF OPERATION: 12/11/2017 PROCEDURES: 1. Stent placement SFA, left. 2. EMTS SFA, left. 3. Unilateral extremity angiography. INDICATION: Claudication and peripheral vascular disease. PROCEDURE IN DETAIL: After informed consent was obtained and after a detailed explanation of the risks, benefits as well as alternative therapies, the patient elected to proceed with angiogram and angioplasty. The right femoral area was prepped and draped in normal sterile fashion. Right femoral artery was cannulated via modified Seldinger technique with a 6-Honduran [id number]-ucw-oedz sheath. All catheters exchanged through this sheath. FINDINGS: The left SFA has 90% stenosis just after the aortobifemoral graft. This was addressed with a 6.0 balloon yielding suboptimal result with severe intimal dissection. Stenting was undertaken with a 7 x 40 S.M.A.R.T. stent. Result was 0% residual stenosis. OVERALL IMPRESSION: Successful percutaneous transluminal angioplasty stent of the left superficial femoral artery going from 90% initial stenosis to 0% residual. TRANSINT:[id number] Voice Confirmation ID: [id number] DOCUMENT ID: [id number] RAVEN JONES MD at 1713 CC: [id number] DICTATION DATE: 12/11/17 1052 TRUCK SWITCHER: 12/11/17 1215 DEP CLI 12/11/17 [place] [id number]
--- NOTE | ~2017-12-11 | HP ---
PATIENT: ISAI MENSAH MEDICAL RECORD: [id number] ACCOUNT: [id number] LOCATION:ANDREINA : 51 ADMISSION DATE: 12/11/17 HISTORY AND PHYSICAL EXAMINATION ADMITTING DIAGNOSES: 1. Angina. 2. Coronary artery disease. 3. Recent percutaneous transluminal coronary angioplasty and stent to the left anterior descending. 4. Hypertension. 5. Hyperlipidemia. HISTORY OF PRESENT ILLNESS: Mr. Mensah is status post PTCA and stent of the LAD approximately 1 month ago. He did well initially, but he has had recurrent anginal symptomatology. He does have moderate irregularities of the circumflex as well as previously placed stents in the RCA at the time of the PTCA stent to the LAD, there was no significant disease of these vessels. PHYSICAL EXAMINATION: GENERAL APPEARANCE: Well nourished, well developed, appears stated age. Level of distress, comfortable. PSYCHIATRIC: Mental status, alert, normal affect. Orientation, oriented to time, place and person. EYES: Lids and conjunctivae, noninjected. No discharge, no pallor. ENT: Lips, teeth, gums, normal dentition. Oropharynx, no cyanosis, no pallor. NECK: Carotid arteries, bilateral normal upstroke, no bruits, no thrills. JUGULAR VEINS: No jugular venous pressure or distention. CERVICAL LYMPH NODES: Nontender, nonenlarged. THYROID: Not enlarged. Nontender. No nodules. LUNGS: Respiratory effort, unlabored. CHEST: Normal curvature. No thoracic deformity. No chest wall tenderness. Percussion, resonant. Auscultation, clear. No wheezes, no rales, no rhonchi. CARDIOVASCULAR: Precordial exam, nondisplaced. No heaves or pericardial thrills. Rate and rhythm, regular. Heart sounds, normal S1, normal S2. No S3, no gallop, no rub. Systolic murmur, not heard. Diastolic murmur, not heard. EXTREMITIES: No cyanosis, no edema. Peripheral pulses, full and equal in all extremities, except as noted. No bruits appreciated. ABDOMEN: Soft, nondistended. Normal aorta. No bruit. Nontender. No masses. Liver, nontender, no hepatomegaly. Spleen, nontender, no splenomegaly. MUSCULOSKELETAL: No joint tenderness. No joint swelling. No erythema. NEUROLOGICAL: Normal gait, normal strength, normal tone. SKIN: Warm and dry. OVERALL IMPRESSION: Anginal symptomatology. We will perform relook angiography to check the patency of the LAD stent as well as progression of disease elsewise. TRANSINT:[id number] Voice Confirmation ID: [id number] DOCUMENT ID: [id number] HISTORY AND PHYSICAL [id number] ISAI MENSAH JEFFREY MD at 1713 CC: [id number] DICTATION DATE: 12/11/1735 FASHION INTERN: 12/11/17 1018 DEP CLI 12/11/17 [facility] [address] [place] [address]
[~2017-12-11 07:51] MED LIST changes: -BAYER CHEWABLE81 MG PO
[2017-12-11 08:16] VITALS: BP 125/81; Ht 292.1 cm; Wt 55.0 kg
[2017-12-11 08:57] LABS: BASOPHILS 0.3 % (0-2); EOSINOPHILS 3.5 % (0-7); HEMATOCRIT 44.3 % (42.0-54.0); HEMOGLOBIN 15.1 g/dL (13.5-17.5); IMMATURE GRANULOCYTES 0.2 % (0-5); LYMPHOCYTES 31.1 % (15-50); MCH 30.7 pg (26.0-34.0); MCHC 34.1 g/dL (31.0-37.0); MEAN PLATELET VOLUME 9.7 fL (7.4-10.4); MONOCYTES 9.5 % (2-11); NEUTROPHILS 55.4 % (40-80); RBC 4.92 10x6/uL (4.20-6.10); RDW 13.3 % (11.5-14.5); WBC 8.6 10x3/uL (4.8-10.8)
[2017-12-11 09:06] LABS: PLATELET COUNT 368 10x3/uL (130-400)
[2017-12-11 09:13] LABS: ANION GAP 9.4 mmol/L (8-16); CALCIUM 8.9 mg/dL (8.5-10.1); CREATININE - SERUM 1.2 mg/dL (0.6-1.3); POTASSIUM - SERUM 4.4 mmol/L (3.5-5.1)
[2017-12-11] MEDS ORDERED: BAYER CHEWABLE81 MG PO (11:03)
== END 2017-12-11 15:20 | disposition home or self-care (01) ==
LOC: D.CATH 07:51
PROVIDERS: Internal Medicine Interventional Cardiology
DX: I70.213 Atherosclerosis of native arteries of extremities with intermittent claudication, bilateral legs (principal)

== ENCOUNTER 2019-04-15 18:04 | Inpatient (IN) | payer MEDICARE ==
[~2019-04-15] VITALS: Ht 165.1 cm; Wt 54.1 kg
[2019-04-15] VITALS (10 sets, daily range): BP systolic 97–117; BP diastolic 57–71
[~2019-04-15 18:04] MED LIST changes: +BAYER CHEWABLE81 MG PO
[2019-04-15 18:30] LABS: BASOPHILS 0.1 % (0-2); EOSINOPHILS 0.7 % (0-7); HEMATOCRIT 29.7 % (42.0-54.0); IMMATURE GRANULOCYTES 0.3 % (0-5); LYMPHOCYTES 20.5 % (15-50); MCH 29.9 pg (26.0-34.0); MCHC 33.7 g/dL (31.0-37.0); MCV 88.9 fL (80.0-100.0); MEAN PLATELET VOLUME 9.6 fL (7.4-10.4); MONOCYTES 4.5 % (2-11); NEUTROPHILS 73.9 % (40-80); PLATELET COUNT 305 10x3/uL (130-400); RBC 3.34 10x6/uL (4.20-6.10); RDW 13.3 % (11.5-14.5); WBC 14.7 10x3/uL (4.8-10.8)
[2019-04-15 18:48] LABS: CALC OSMOLALITY 274 mosm/kg (275-300); CALCIUM 9.2 mg/dL (8.5-10.1); CARBON DIOXIDE 27.6 mmol/L (21.0-32.0); CHLORIDE - SERUM 98 mmol/L (98-107); CREATININE - SERUM 1.1 mg/dL (0.6-1.3); GLUCOSE 130 mg/dL (74-106); POTASSIUM - SERUM 3.5 mmol/L (3.5-5.1); SODIUM 133 mmol/L (136-145); UREA NITROGEN 31 mg/dL (7-18); eGFR NON AFRICAN AMERICAN 71 mL/min (90-120)
[2019-04-15 19:10] LABS: ALBUMIN 3.6 g/dL (3.4-5.0); ALKALINE PHOSPHATASE 77 U/L (46-116); ALT (SGPT) 18 U/L (10-68); BILIRUBIN - TOTAL 0.38 mg/dL (0.2-1.3); CKMB 0.8 U/L (0.0-3.6); CREATINE KINASE 66 UL (21-232); MAGNESIUM - SERUM 1.8 mg/dL (1.8-2.4); PRO BNP 65 pg/mL (0-125); PROTEIN - SERUM 6.8 g/dL (6.4-8.2)
[2019-04-15 19:15] LABS: TROPONIN-I 0.082 ng/mL (0.000-0.060)
--- NOTE | 2019-04-15 19:23 | NUR ---
STOOL GUIAC POSITIVE, DR. PARSONS NOTIFIED
--- NOTE | 2019-04-15 21:00 | NUR ---
PT GIVEN WATER TO DRINK OK PER .
--- NOTE | 2019-04-15 22:07 | NUR ---
pt passed large amount of gas at this time. no stool
--- NOTE | 2019-04-15 22:45 | NUR ---
RECIEVED PT FROM ER VIA BED WITH HOSPITAL STAFF AT BEDSIDE. ALERT AND ORIENTED X4, VS STABLE AND AFEBRILE. RESPIRATIONS EVEN AND UNLABORED. NO VISUAL CUES OF DISTRESS NOTED. WILL CONTINUE TO MONITOR.
[2019-04-16] VITALS (22 sets, daily range): BP systolic 91–136; BP diastolic 46–94; Ht 165.1 cm; Wt 54.1 kg
[2019-04-16 04:23] LABS: BASOPHILS 0 % (0-2); EOSINOPHILS 3.1 % (0-7); IMMATURE GRANULOCYTES 0.2 % (0-5); LYMPHOCYTES 30.9 % (15-50); MCH 29.7 pg (26.0-34.0); MCHC 33.2 g/dL (31.0-37.0); MCV 89.4 fL (80.0-100.0); MEAN PLATELET VOLUME 9.7 fL (7.4-10.4); MONOCYTES 7.4 % (2-11); NEUTROPHILS 58.4 % (40-80); PLATELET COUNT 268 10x3/uL (130-400); RDW 13.4 % (11.5-14.5)
[2019-04-16 04:32] LABS: HEMATOCRIT 23.5 % (42.0-54.0); HEMOGLOBIN 7.8 g/dL (13.5-17.5); RBC 2.63 10x6/uL (4.20-6.10); WBC 8.8 10x3/uL (4.8-10.8)
[2019-04-16 04:52] LABS: CALC OSMOLALITY 282 mosm/kg (275-300); CARBON DIOXIDE 28.1 mmol/L (21.0-32.0); CHLORIDE - SERUM 108 mmol/L (98-107); CKMB 0.8 U/L (0.0-3.6); CREATININE - SERUM 1.1 mg/dL (0.6-1.3); GLUCOSE 96 mg/dL (74-106); POTASSIUM - SERUM 3.8 mmol/L (3.5-5.1); SODIUM 139 mmol/L (136-145); UREA NITROGEN 27 mg/dL (7-18); eGFR NON AFRICAN AMERICAN 71 mL/min (90-120)
[2019-04-16 04:55] LABS: TROPONIN-I < 0.017 ng/mL (0.000-0.060)
--- NOTE | 2019-04-16 07:00 | NUR ---
PT REPORT RECEIVED FROM CUSTOMER SUPPORT SPECIALIST NURSE. NO VISIBLE SIGNS OF DISTRESS NOTED. SHIFT ASSESSMENT COMPLETED AT THIS TIME. WILL CONTINUE TO MONITOR
--- NOTE | 2019-04-16 08:15 | NUR ---
PT RESTING IN BED. BLOOD TRANSFUSION STARTED. NO VISIBLE SIGNS OF DISTRESS NOTED.
--- NOTE | 2019-04-16 09:45 | NUR ---
PT RESTING IN BED. FIRST BAG OF BLOOD TRANSFUSED. NO VISIBLE SIGNS OF DISTRESS NOTED. PT TOLERATED WELL. WILL CONTINUE TO MONITOR
--- NOTE | 2019-04-16 10:00 | NUR ---
PT RESTING IN BED. NO VISIBLE SIGNS OF DISTRESS NOTED. SECOND BAG OF BLOOD HUNG AND TRANSFUSION STARTED. WILL CONTINUE TO MONITOR
--- NOTE | 2019-04-16 11:00 | NUR ---
PT REASSESSMENT COMPLETED. NO VISIBLE SIGNS OF DISTRESS NOTED. BLOOD TRANSFUSING AT THIS TIME. WILL CONTINUE TO MONITOR
--- NOTE | 2019-04-16 11:55 | NUR ---
SECOND BAG OF BLOOD FINISHED TRANSFUSING PT TOLERATED WELL. NO VISIBLE SIGNS OF DISTRESS NOTED. WILL CONTINUE TO MONITOR
--- NOTE | 2019-04-16 13:00 | NUR ---
PT RESTING IN BED. NO COMPLAINTS NOTED AT THIS TIME. WILL CONTINUE TO MONITOR
--- NOTE | 2019-04-16 13:44 | NUR ---
SHERRI RN AT BEDSIDE. DETAILING PROCEDURE TO PT. INSTRUCTED NURSE TO GIVE PREOP MEDS AT 1500.
--- NOTE | 2019-04-16 15:30 | NUR ---
SHERRI RN IN ROOM WITH PT. SETTING UP FOR EGD PROCEDURE. NO VISIBLE SIGNS OF DISTRESS NOTED. WILL CONTINUE TO MONITOR
--- NOTE | 2019-04-16 16:13 | NUR ---
PT CAME OUT OF EGD PROCEDURE. NO ABNORMAL FINDINGS. PT BP 69/40. ANESTHESIA GIVING MEDS TO HELP INCREASE BP. WILL CONTINUE TO MONITOR
--- NOTE | 2019-04-16 16:15 | NUR ---
DR CHADWICK AT BEDSIDE. GAVE ORDER TO STOP PROTONIX DRIP AND START PROTONIX 40MG DAILY. ALSO STATED THAT IF PT HEMOGLOBIN AND HEMATOCRIT ARE STABLE COULD POSSIBLY TRANSFER TO FLOOR
--- NOTE | 2019-04-16 17:37 | NUR ---
PT ABLE TO EAT HIS DINNER TRAY. ATE ALL OF IT AND TOLERATED WELL. NO COMPLAINTS NOTED AT THIS TIME. WILL CONTINUE TO [facility]
--- NOTE | 2019-04-16 20:01 | NUR ---
REPORTED CALLED TO MED 3 SPOKE WITH LORNA JOHNSON.
--- NOTE | 2019-04-16 20:18 | NUR ---
PT TRANSFERRED TO [facility] ROOM 1212 VIA W/C IN GOOD STABLE CONDITION.
--- NOTE | 2019-04-16 20:45 | NUR ---
PT ARRIVED VIA WHEELCHAIR WITH BROOKE ROTHMAN FROM ICU. IV INTACT. IV RUNNING AT 75 ML/HR. DENIES NEEDS AT THIS TIME. FRESH ICE WATER GIVEN TO PT. CL IN REACH. RESP EVEN AND UNLABORED. UP AD BYRON TO BATHROOM. A/O X4. LUNGS CLEAR. BOWEL ACTIVE X4. WILL CONTINUE TO MONITOR.
[2019-04-17] VITALS (8 sets, daily range): BP systolic 83–102; BP diastolic 36–56
--- NOTE | 2019-04-17 00:11 | NUR ---
pt bp from machine was 86/46 pulse 70, rechecked manually, bp on left arm was 92/48 and right arm was 90/44. iv fluid running at 75ml/hr changed to 200 for an hour will recheck at 0100.
--- NOTE | 2019-04-17 01:12 | NUR ---
I have reviewed this patient and I concur with the Shift Assessment completed by the Licensed Practical Nurse today this shift.
--- NOTE | 2019-04-17 01:46 | NUR ---
RECHECKED BP IT WAS 80/40 ON LEFT ARM. CALLED MICHAEL Chua APN, MICHAEL ORDERED STAT H&H DUE TO PREVIOUS LOW RESULTS, AND 500 BOLUS OF NS. AND IF HEMOGLOBIN IS LESS THEN 8 THEN TO CALL MICHAEL BACK AND IF BP HAS NOT CAME UP ANY TO CALL BACK. PT DENIES SOB OR DIZZINESS. WILL CONTINUE TO MONITOR.
[2019-04-17 02:16] LABS: BASOPHILS 0 % (0-2); EOSINOPHILS 5.2 % (0-7); HEMATOCRIT 27.7 % (42.0-54.0); HEMOGLOBIN 9.2 g/dL (13.5-17.5); IMMATURE GRANULOCYTES 0.5 % (0-5); LYMPHOCYTES 33.8 % (15-50); MCHC 33.2 g/dL (31.0-37.0); MCV 90.2 fL (80.0-100.0); MEAN PLATELET VOLUME 9.7 fL (7.4-10.4); MONOCYTES 7.9 % (2-11); NEUTROPHILS 52.6 % (40-80); RBC 3.07 10x6/uL (4.20-6.10); RDW 14.3 % (11.5-14.5); WBC 8.6 10x3/uL (4.8-10.8)
[2019-04-17 02:17] LABS: PLATELET COUNT 213 10x3/uL (130-400)
[2019-04-17 02:36] LABS: CALC OSMOLALITY 290 mosm/kg (275-300); CARBON DIOXIDE 25.4 mmol/L (21.0-32.0); CHLORIDE - SERUM 113 mmol/L (98-107); GLUCOSE 100 mg/dL (74-106); POTASSIUM - SERUM 3.9 mmol/L (3.5-5.1); SODIUM 144 mmol/L (136-145); UREA NITROGEN 23 mg/dL (7-18); eGFR NON AFRICAN AMERICAN 79 mL/min (90-120)
--- NOTE | 2019-04-17 02:50 | NUR ---
CALLED MICHAEL AGAIN DUE TO BP STILL 88/40 AFTER 500ML BOLUS AND LABS H&H WERE 9.2 AND 27.7. MICHAEL ORDERED AN ALUBUMIN TO RUN WITH THE LOW CALCIUM FOR AM LABS, AND MONITOR BP. WILL TAKE BP EVERY HOUR. IF BELOW 80 ORDERS TO PAGE MICHAEL AGAIN. [facility] PT DENIES NEEDS
--- NOTE | 2019-04-17 05:45 | NUR ---
BP 89/47 LEFT ARM. STILL NO S/S OF DISTRESS. PT A/O X4 AN DENIES NEEDS
--- NOTE | 2019-04-17 09:07 | MORECARE ---
CASE MANAGEMENT DISCHARGE SUMMARY PATIENT: ISAI FONSECA UNIT: [id number] ADM DATE: 04/15/19 AGE: 64 : 51 SEX: M ROOM/BED: D.1212 AUTHOR: ANALI GAMA PHYSICIAN: REFERRING PHYSICIAN: MERARI HERNANDEZ MD DATE OF SERVICE: 04/17/19 Discharge Plan Patient Name: ISAI FONSECA [facility] 1955 Planned Disposition: Anticipated Discharge Date: Discharge Date: Expected LOS: Initial Reviewer: [email or web address] Initial Review Date: 04/16/2019 Generated: 04/17/19 10:07 am DCPIA - Discharge Planning Initial Assessment Updated by [email or web address]: Janell Carty on 04/17/19 9:06 am * Is the patient Alert and Oriented? Yes * How many steps to enter\exit or inside your home? * PCP [facility] / RAHEEM * Pharmacy [facility] * Preadmission Environment Home with Family * ADLs Independent * Equipment Cane * List name and contact numbers for known caregivers / representatives who currently or will assist patient after discharge: SMITH FONSECA - BROTHER - [phone] * Verbal permission to speak to the caregivers and representatives has been obtained from the patient. Yes * Community resources currently utilized None * Additional services required to return to the preadmission environment? No * Can the patient safely return to the preadmission environment? Yes * Has this patient been hospitalized within the prior 30 days at any hospital? No Patient Name: ISAI FONSECA Page [id number] at 0907 All edits/amendments must be made on the electronic document DICTATION DATE: 04/17/19906 DATA SECURITY ANALYST: BANG 04/17/19906 RPT#: [id number] DC DATE: STATUS: ADM IN [facility] [address] [place] [address] END OF REPORT
--- NOTE | 2019-04-17 09:15 | MORECARE ---
CASE MANAGEMENT DISCHARGE SUMMARY PATIENT: ISAI FONSECA UNIT: [id number] ADM DATE: 04/15/19 AGE: 64 : 51 SEX: M ROOM/BED: D.1212 AUTHOR: LANETTE,DOC PHYSICIAN: REFERRING PHYSICIAN: MERARI HERNANDEZ MD DATE OF SERVICE: 04/17/19 Discharge Plan Patient Name: ISAI FONSECA [facility] : 1955 Planned Disposition: Anticipated Discharge Date: Discharge Date: Expected LOS: Initial Reviewer: [email or web address] Initial Review Date: 04/16/2019 Generated: 04/17/19 10:15 am Comments DCP- Discharge Planning Updated by [email or web address]: Janell Carty on 04/17/19 8:[address] Patient Name: ISAI FONSECA Admission Status: ER Accout number: [id number] Admission Date: 04-15-2019 : 1955 Admission Diagnosis: Attending: MERARI BRITO Current LOS: 2 Anticipated DC Date: Planned Disposition: Primary Insurance: MEDICARE A & B Discharge Planning Comments: CM met with patient at bedside after explaining CM role and obtaining verbal consent. Patient lives at home (in a camper) with a roommate where he is independent with his care and plans to return there upon discharge. Patient feels this would be a safe discharge. CM discussed availability / needs of home health and medical equipment. Patient denies any discharge needs at this time. Patient states he will have his family drive him home upon discharge. CM will continue to follow and assist as needed with discharge planning / needs. Solution Analyst: Janell Carty DCPIA - Discharge Planning Initial Assessment Updated by [email or web address]: Janell Carty on 04/17/19 9:06 am * Is the patient Alert and Oriented? Yes * How many steps to enter\exit or inside your home? * PCP [facility] / [facility] * [facility]acy [facility] * Preadmission Environment Home with Family * ADLs Independent * Equipment Cane * List name and contact numbers for known caregivers / representatives who currently or will assist patient after discharge: SMITH FONSECA - BROTHER - [phone] * Verbal permission to speak to the caregivers and representatives has been obtained from the patient. Yes * Community resources currently utilized None * Additional services required to return to the preadmission environment? No * Can the patient safely return to the preadmission environment? Yes * Has this patient been hospitalized within the prior 30 days at any hospital? No Last DP export: 04/17/19 8:07 Patient Name: ISAI FONSECA Page 60660 at 0915 All edits/amendments must be made on the electronic document DICTATION DATE: 04/17/19914 ROCK WOOL INSULATOR: BANG 04/17/19914 RPT#: [id number] DC DATE: STATUS: ADM IN [facility] [address] [place] [address] END OF REPORT
--- NOTE | 2019-04-17 09:31 | NUR ---
ALERT AND ORIENTED. NO C/O PAIN. RESP EVEN AND UNLABORED. CL IN REACH.
--- NOTE | 2019-04-17 09:36 | NUR ---
PATIENT STATES HAD BM WITH SM AMT BLOOD. HAD FLUSHED.
--- NOTE | 2019-04-17 13:26 | NUR ---
NO CHANGE IN ASSESSMENT. RESTING WO DISTRESS. CL IN REACH.
[2019-04-17 14:51] LABS: HEMATOCRIT 28.8 % (42.0-54.0); HEMOGLOBIN 9.5 g/dL (13.5-17.5)
--- NOTE | 2019-04-17 16:01 | NUR ---
NO CHANGE IN ASSESSMENT. WO C/O PAIN AT THIS TIME. RESP EVEN AND UNLABORED. CL IN REACH. WANTS TO DC HOME TODAY. WILL CHECK WITH .
--- NOTE | 2019-04-17 17:15 | MORECARE ---
CASE MANAGEMENT DISCHARGE SUMMARY PATIENT: ISAI FONSECA UNIT: [id number] ADM DATE: 04/15/19 AGE: 64 : 51 SEX: M ROOM/BED: D.1212 AUTHOR: ANALI GAMA PHYSICIAN: REFERRING PHYSICIAN: MERARI HERNANDEZ MD DATE OF SERVICE: 04/17/19 Discharge Plan Patient Name: ISAI FONSECA Facility: [facility]:[place] : 1955 Planned Disposition: Anticipated Discharge Date: Discharge Date: Expected LOS: Initial Reviewer: [email or web address] Initial Review Date: 04/16/2019 Generated: 04/17/19 6:14 pm Comments DCP- Discharge Planning Updated by [email or web address]: Stacie Kerr on 04/17/19 4:[address] Patient Name: ISAI FONSECA Admission Status: ER Accout number: [id number] Admission Date: 04-15-2019 : 1955 Admission Diagnosis: Attending: MERARI BRITO Current LOS: 2 Anticipated DC Date: Planned Disposition: Primary Insurance: MEDICARE A & B Discharge Planning Comments: SPOKE WITH PATIENT AT LENGTH AFTER SPEAKING WITH DR. HERNANDEZ. ENCOURAGED PATIENT TO STAY SO H&H CAN BE REVIEWED IN THE MORNING. PATIENT IS AGREEABLE TO STAY. I EXPLANED THE IMPORTANCE OF HIM STAYING WITH HIS FAMILY ALSO. PATIENT IS MUCH MORE CALM. CM WILL FOLLOW AND ASSIST NEEDED. HE WILL BE NPO AFTER MIDNIGHT PER DR. HERNANDEZ. RN NOTIFIED. Match Up Worker: Stacie Kerr DCP- Discharge Planning Updated by [email or web address]: Janell Carty on 04/17/19 8:[address] Patient Name: ISAI FONSECA Admission Status: ER Accout number: [id number] Admission Date: 04-15-2019 : 1955 Admission Diagnosis: Attending: MERARI BRITO Current LOS: 2 Anticipated DC Date: Planned Disposition: Primary Insurance: MEDICARE A & B Discharge Planning Comments: CM met with patient at bedside after explaining CM role and obtaining verbal consent. Patient lives at home (in a camper) with a roommate where he is independent with his care and plans to return there upon discharge. Patient feels this would be a safe discharge. CM discussed availability / needs of home health and medical equipment. Patient denies any discharge needs at this time. Patient states he will have his family drive him home upon discharge. CM will continue to follow and assist as needed with discharge planning / needs. Match Up Worker: Janell Carty DCPIA - Discharge Planning Initial Assessment Updated by [email or web address]: Janell Carty on 04/17/19 9:06 am * Is the patient Alert and Oriented? Yes * How many steps to enter\exit or inside your home? * PCP [facility] / [facility] * Pharmacy [facility] * Preadmission Environment Home with Family * ADLs Independent * Equipment Cane * List name and contact numbers for known caregivers / representatives who currently or will assist patient after discharge: SMITH FONSECA - BROTHER - [phone] * Verbal permission to speak to the caregivers and representatives has been obtained from the patient. Yes * Community resources currently utilized None * Additional services required to return to the preadmission environment? No * Can the patient safely return to the preadmission environment? Yes * Has this patient been hospitalized within the prior 30 days at any hospital? No Last DP export: 04/17/19 8:15 Patient Name: ISAI FONSECA Page [id number] at 1715 All edits/amendments must be made on the electronic document DICTATION DATE: 04/17/191713 FOREST AND CONSERVATION WORKER: BANG 04/17/191713 RPT#: [id number] DC DATE: STATUS: ADM IN [facility] [address] [place] [address] END OF REPORT
--- NOTE | 2019-04-17 18:15 | NUR ---
NPO AFTER MN TONIGHT PER DR HERNANDEZ.
--- NOTE | 2019-04-17 19:36 | NUR ---
PT LYING IN BED WATCHING TV. CL IN REACH. DENIES NEEDS AT THIS TIME. BED IN LOW SIDE RAILS X2. RESP EVEN AND UNLABORED. A/O X4. LUNGS CLEAR. BOWEL ACTIVE X4. WILL CONTINUE TO MONITOR.
[2019-04-18 00:11] VITALS: BP 92/45
--- NOTE | 2019-04-18 03:34 | NUR ---
I have reviewed this patient and I concur with the Shift Assessment completed by the Licensed Practical Nurse today this shift.
[2019-04-18 04:30] VITALS: BP 100/47
[2019-04-18 05:37] LABS: BASOPHILS 0 % (0-2); EOSINOPHILS 2.7 % (0-7); HEMATOCRIT 27.2 % (42.0-54.0); IMMATURE GRANULOCYTES 0.1 % (0-5); LYMPHOCYTES 26.4 % (15-50); MCH 29.7 pg (26.0-34.0); MCHC 33.1 g/dL (31.0-37.0); MCV 89.8 fL (80.0-100.0); MEAN PLATELET VOLUME 9.9 fL (7.4-10.4); MONOCYTES 8.8 % (2-11); PLATELET COUNT 226 10x3/uL (130-400); RBC 3.03 10x6/uL (4.20-6.10); RDW 14.3 % (11.5-14.5); WBC 10.6 10x3/uL (4.8-10.8)
[2019-04-18 06:12] LABS: ALBUMIN 2.5 g/dL (3.4-5.0); ANION GAP 10.8 mmol/L (8-16); BILIRUBIN - TOTAL 0.28 mg/dL (0.2-1.3); CALCIUM 7.5 mg/dL (8.5-10.1); CARBON DIOXIDE 23.9 mmol/L (21.0-32.0); CREATININE - SERUM 1.2 mg/dL (0.6-1.3); POTASSIUM - SERUM 3.7 mmol/L (3.5-5.1); PROTEIN - SERUM 5.2 g/dL (6.4-8.2)
--- NOTE | 2019-04-18 07:30 | NUR ---
PT IS RESTING IN BED WITH EYES OPEN. RESPIRATIONS ARE EVEN AND UNLABORED. PT IS AAO X 4. PT DENIES PRESENCE OF ABDOMINAL PAIN/N/V AT THIS TIME. PT REPORTS THAT HE HAS NOT HAD BLOOD IN STOOL "SINCE THE OTHER DAY". PT DENIES PRESENCE OF CHEST PAIN. PT DENIES PRESENCE OF NUMBNESS/TINGLING. BS ACTIVE X 4. BED IS IN THE LOWEST POSITION. CALL LIGHT AND BEDSIDE TABLE ARE WITHIN REACH. SIDE RAILS X 2. PT DENIES FURTHER NEEDS. WILL CONT TO MONITOR.
[2019-04-18 07:52] VITALS: BP 108/44
--- NOTE | 2019-04-18 10:39 | NUR ---
PT REPORTS HAVING ONE BM THIS AM DESCRIBED "SOLID AND BLACK". DR HERNANDEZ NOTIFIED. TELEPHONE INSTRUCTIONS ARE TO INFORM DR CHADWICK ABOUT PT H/H AND BM THIS AM. PAGE PLACED TO DR CHADWICK TO NOTIFY. WILL WAIT FOR RETURN PAGE.
[2019-04-18 11:42] VITALS: BP 106/58
[2019-04-18] MEDS ORDERED: PROTONIX40 MG PO (12:42)
--- NOTE | 2019-04-18 14:40 | NUR ---
ALL DISCHARGE INSTRUCTIONS COVERED WITH PT. ALL QUESTIONS ANSWERED. PT DENIES FURTHER QUESTIONS/CONCERNS/NEEDS. PIV TO RIGHT FA REMOVED WITH CATHETER TIP INTACT. DRESSING APPLIED. PIV TO LEFT FA REMOVED WITH CATHETER TIP INTACT. DRESSING APPLIED. ALL DISCHARGE PAPERS SIGNED BY PT. PT DENIES FURTHER NEEDS. PT TO NOTIFY NURSE WHEN TRANSPORTATION ARRIVES. SIGNED DISCHARGE PAPERS PLACED IN PT CHART.
--- NOTE | 2019-04-18 15:11 | NUR ---
PT AMBULATES FROM ROOM AT PT REQUEST. PT STATES THAT HE WILL WAIT FOR TRANSPORTATION OUT FRONT OF HOSPITAL. PT THANKS ME FOR CARE GIVEN THIS SHIFT AND DENIES FURTHER NEEDS/QUESTIONS/CONCERNS. PT REPORTS THAT HE HAS ALL OF HIS BELONGINGS.
--- NOTE | 2019-04-19 09:52 | MORECARE ---
CASE MANAGEMENT DISCHARGE SUMMARY PATIENT: ISAI FONSECA UNIT: [id number] ADM DATE: 04/15/19 AGE: 64 : 51 SEX: M ROOM/BED: D.1212 AUTHOR: ANALI GAMA PHYSICIAN: REFERRING PHYSICIAN: MERARI HERNANDEZ MD DATE OF SERVICE: 04/19/19 Discharge Plan Patient Name: ISAI FONSECA Facility: [facility]:[place] : 1955 Planned Disposition: Anticipated Discharge Date: Discharge Date: 04/18/2019 Expected LOS: Initial Reviewer: [email or web address] Initial Review Date: 04/16/2019 Generated: 04/19/19 10:52 am Comments DCP- Discharge Planning Updated by [email or web address]: Stacie Kerr on 04/17/19 4:[address] Patient Name: ISAI FONSECA Admission Status: ER Accout number: [id number] Admission Date: 04-15-2019 : 1955 Admission Diagnosis: Attending: MERARI BRITO Current LOS: 2 Anticipated DC Date: Planned Disposition: Primary Insurance: MEDICARE A & B Discharge Planning Comments: SPOKE WITH PATIENT AT LENGTH AFTER SPEAKING WITH DR. HERNANDEZ. ENCOURAGED PATIENT TO STAY SO H&H CAN BE REVIEWED IN THE MORNING. PATIENT IS AGREEABLE TO STAY. I EXPLANED THE IMPORTANCE OF HIM STAYING WITH HIS FAMILY ALSO. PATIENT IS MUCH MORE CALM. CM WILL FOLLOW AND ASSIST NEEDED. HE WILL BE NPO AFTER MIDNIGHT PER DR. HERNANDEZ. RN NOTIFIED. Enterprise Sales Executive: Stacie Kerr DCP- Discharge Planning Updated by [id number]: Janell Carty on 04/17/19 8:[address] Patient Name: ISAI FONSECA Admission Status: ER Accout number: [id number] Admission Date: 04-15-2019 : 1955 Admission Diagnosis: Attending: MERARI BRITO Current LOS: 2 Anticipated DC Date: Planned Disposition: Primary Insurance: MEDICARE A & B Discharge Planning Comments: CM met with patient at bedside after explaining CM role and obtaining verbal consent. Patient lives at home (in a camper) with a roommate where he is independent with his care and plans to return there upon discharge. Patient feels this would be a safe discharge. CM discussed availability / needs of home health and medical equipment. Patient denies any discharge needs at this time. Patient states he will have his family drive him home upon discharge. CM will continue to follow and assist as needed with discharge planning / needs. Enterprise Sales Executive: Janell Carty DCPIA - Discharge Planning Initial Assessment Updated by [email or web address]: Janell Carty on 04/17/19 9:06 am * Is the patient Alert and Oriented? Yes * How many steps to enter\exit or inside your home? * PCP [facility] / [facility] * [facility]acy [facility] * Preadmission Environment Home with Family * ADLs Independent * Equipment Cane * List name and contact numbers for known caregivers / representatives who currently or will assist patient after discharge: SMITH FONSECA - BROTHER - [phone] * Verbal permission to speak to the caregivers and representatives has been obtained from the patient. Yes * Community resources currently utilized None * Additional services required to return to the preadmission environment? No * Can the patient safely return to the preadmission environment? Yes * Has this patient been hospitalized within the prior 30 days at any hospital? No Coverage Notice Reviewer: [email or web address] - Janell Carty Notice Issued Date-Time: 04/18/2019 13:20 Notice Type: IM Discharge Notice Notice Delivered To: Patient Relationship to Patient: Self Hide And Skin Colerer Name: Delivery Method: HAND - Hand Delivered Keena Days: Prior Verbal Notification: Recipient Understood Notice: Yes Recipient Signature: Yes Med Rec Note Co-signed by Attending: Coverage Notice Comment: Last DP export: 04/17/19 4:14 Patient Name: ISAI FONSECA Page 06887 at 0952 All edits/amendments must be made on the electronic document DICTATION DATE: 04/19/19951 CIGAR PACKER AND PICKER: BANG 04/19/19951 RPT#: [id number] DC DATE:04/18/19 STATUS: DIS IN [facility] [address] [place] [address] END OF REPORT
== END 2019-04-18 15:30 | disposition home or self-care (01) | DRG 378 ==
LOC: D.ER 18:04 → D.ICU 21:25 → D.M3 21:25
PROVIDERS: Emergency Medicine; Internal Medicine Gastroenterology; ADMIT Family Medicine; ATTEND Family Medicine
PROC: 0DB68ZX Excision of Stomach, Via Natural or Artificial Opening Endoscopic, Diagnostic (ICD-10-PCS; principal; 2019-04-16 15:30)
DX: K29.81 Duodenitis with bleeding (principal); D62 Acute posthemorrhagic anemia; K29.71 Gastritis, unspecified, with bleeding; I25.10 Atherosclerotic heart disease of native coronary artery without angina pectoris; J43.9 Emphysema, unspecified; Z86.73 Personal history of transient ischemic attack (TIA), and cerebral infarction without residual deficits